=== PATIENT | female | born 1950 | race Caucasian/White ===

== ENCOUNTER 2020-07-28 15:01 | Emergency (ER) | payer MEDICARE, SELFPAY ==
[2020-07-28 15:54] VITALS: BP 117/66; PULSE 59; RESP 18; TEMP 36.6; O2SAT 97; BMI 24.0
[2020-07-28 16:41] VITALS: BP 127/72; PULSE 55; RESP 14; O2SAT 97
[2020-07-28] MEDS: methylPREDNISolone (DEPO) 40 mg/mL INJ 1 mL IM (16:44)
--- NOTE | 2020-07-28 16:46 | ED_ITS ---
HPI - Extremity Problem General: Chief complaint: Extremity Problem,Nontraumatic Stated complaint: left hip pain Time Seen by Provider: 07/28/20 16:27 History of Present Illness: HPI Narrative: Patient woke up with sciatica leg pain going down left hip down to told. Has history of chronic back problems. Has taken ibuprofen without any relief. Hurts to ambulate hurts to get up and out of chair. MD Complaint: extremity pain Onset (ago): day(s) Pain Consistency: intermittent Location: left and lower extremity Severity scale (1-10): 7 Quality: stabbing and aching Radiation: distal Relieving factors: immobilization Exacerbating factors: range of motion Associated symptoms: Reports no associated symptoms; Deny chest pain, fever(s) or rash Review of Systems Const: Denies: fever(s), chills or body aches Eyes: Denies: change in vision or blurry vision ENMT: Denies: throat pain or nasal congestion Card: Denies: chest pain or dyspnea on exertion Resp: Denies: dyspnea, productive cough or non-productive cough GI: Denies: abdominal pain, nausea or vomiting Musc: Reports: back pain and extremity pain; Denies: extremity swelling, joint pain, joint swelling, joint redness, joint warmth, joint stiffness, limited range of motion, muscle cramps, muscle weakness or deformity Skin/Breast: Denies: rash Neuro: Denies: headache(s) Psych: Denies: anxiety or depression Wilbert/Lymph: Denies: easy bruising PFSH ED PFSH: Medical History (Updated 07/28/20 @ 16:32 by MANOJ Valles) History of myocardial infarction (~2014) Surgical History H/O heart artery stent (2014) 5 placed Family History Other Cancer Diabetes Hypertension Social History Smoking and tobacco status: current every day smoker Alcohol intake: never Lives independently: Yes Marital status: Physical Exam Const: COMMON NORMALS: no acute distress, average body habitus and patient oriented x3 HENMT: COMMON NORMALS: normocephalic HEAD & SCALP: normal to inspection and normocephalic FACE & SINUS: normal facial exam Eye: COMMON NORMALS: conjunctivae normal GENERAL EYE: appearance normal, both eyes and all related structures CONJUNCTIVA: Yes conjunctivae normal Neck/C-Spine: COMMON NORMALS: no JVD Chest: COMMONS NORMALS: normal inspection of the chest Resp: COMMON NORMALS: normal respiratory effort and clear to auscultation bilaterally AUSCULTATION: clear to auscultation bilaterally Cardio: COMMON NORMALS: no JVD, regular rate and regular rhythm RATE: regular rate RHYTHM: regular rhythm GI: COMMON NORMALS: Normal to inspection, nondistended, normoactive bowel sounds present Back/Pelvis: LUMBAR SPINE/LOWER BACK: No lumbar spinal tenderness, Yes paraspinal muscle tenderness, No paraspinal muscle spasm and Yes straight leg raise positive left Straight leg raise positive details left: at 40 degrees Extremity: COMMON NORMALS: full ROM OTHER: Pain tracking along sciatica from hip down to toe hurts across calf knee and thigh. Has pain in the buttock top sciatica Neuro: COMMON NORMALS: patient oriented x3 Course Vital Signs: Vital signs: Vital Signs Temperature 97.9 F 07/28/20 15:54 Pulse Rate 55 L 07/28/20 16:41 Respiratory Rate 14 07/28/20 16:41 Blood Pressure 127/72 07/28/20 16:41 Pulse Oximetry 97 07/28/20 16:41 Discharge Plan Discharge Patient Disposition: Home Clinical Impression: Sciatic leg pain Condition: Stable Prescriptions: New Celebrex 100 mg capsule 100 mg PO BID Qty: 20 RF: 0 No Action aspirin 81 mg tablet,delayed release (DR/EC) 81 mg PO DAILY RF: 0 metoprolol tartrate 50 mg tablet 50 mg PO BID Qty: 60 RF: 3 nitroglycerin [Nitrostat] 0.4 mg tablet, sublingual 0.4 mg SUBLINGUAL Q5M PRN (Reason: chest pain) Qty: 30 RF: 1 atorvastatin 40 mg tablet 40 mg PO DAILY Qty: 90 RF: 3 ibuprofen [Advil] 200 mg tablet 200 mg PO Q6H PRN (Reason: pain) Qty: 90 RF: 3 Discharge Orders: Discharge ED (Routine); Ordered 07/28/20 Ordered By: Luis Armando Alcantara Referrals: Tamiko Marquez MD [Primary Care Provider] - Discharge Diet: Usual diet Discharge Activity: Increase activity as tolerated Patient Instructions: Sciatica (ED) Activity Restrictions/Additional Instructions: Follow-up with medical provider as directed. Take medications as prescribed. Return to the ER or your medical provider if condition worsens. Please read and understand discharge instructions. If any questions ask please. Coding Level of Care Code ED Home Health Assistant for Winston Rios
== END 2020-07-28 16:52 | disposition home or self-care (01) ==
PROVIDERS: Emergency Provider Nurse Practitioner Family; PCP Family Medicine
DX: M54.30 Sciatica, unspecified side (principal); Z79.82 Long term (current) use of aspirin; I25.2 Old myocardial infarction; F17.210 Nicotine dependence, cigarettes, uncomplicated
CPT/HCPCS: 12345; 96372; 96375; 99281; 99283; J1030

== ENCOUNTER 2020-08-06 06:00 | Outpatient (RCR) | payer MEDICARE, SELFPAY | END 2020-08-31 23:59 | disposition home or self-care (01) | LOC: TPT 06:00 | PROVIDERS: PCP Family Medicine; Referring Provider Family Medicine; Visit Provider Family Medicine | DX: M54.30 Sciatica, unspecified side (principal) | CPT/HCPCS: 97161 ==

== ENCOUNTER 2020-08-08 17:03 | Emergency (ER) | payer MEDICARE, SELFPAY ==
[2020-08-08 17:08] VITALS: BP 122/66; PULSE 60; RESP 18; TEMP 36.7; O2SAT 97; BMI 22.3
[2020-08-08 17:12] VITALS: BP 130/41; PULSE 53; RESP 17; O2SAT 98
--- NOTE | 2020-08-08 17:25 | USCV_ITS ---
Deidre Albert Age: 70 Gender: F : 1950 Exam Date: 08/08/2020 17:43 Ordering Phys: Jocelyn Moreno MD [facility] [place] Technologist: Lucía Aldridge Exam Location: [facility] [place]_ Indication: PAIN HISTORY: Lower extremity pain. PROCEDURES: Venous duplex imaging was performed in only the left lower extremity. The following venous structures were evaluated: common femoral vein, profunda vein, proximal portion of the greater saphenous vein, superficial femoral vein, and the popliteal vein. In addition, the posterior tibial and peroneal trunk were evaluated. Serial compression, augmentation maneuvers, and spectral Doppler flow evaluation were performed. FINDINGS: Normal 2-D Doppler and augmentation and compressibility throughout the lower extremity venous structures. Additional imaging through the proximal calf veins also reveals no thrombus. Limited evaluation of the greater saphenous vein is patent with no thrombus.. CONCLUSIONS No evidence of DVT in the above-mentioned identifiable veins. Dr Chicho Duque MD [facility] (Electronically Signed) Final Date: 08 August 2020 19:41 S
[2020-08-08 18:10] VITALS: BP 130/41; PULSE 54; RESP 20; O2SAT 98
[2020-08-08 18:14] VITALS: PULSE 52
--- NOTE | 2020-08-08 18:25 | W.ED.EXTPRO ---
HPI - Extremity Problem General: Chief complaint: Extremity Problem,Nontraumatic Stated complaint: suspects blood clot in left leg Time Seen by Provider: 08/08/20 17:20 Source: patient Mode of arrival: ambulatory Limitations: no limitations History of Present Illness: HPI Narrative: 70-year-old female patient with left leg pain of about 2 weeks duration. She has been seen in the emergency department and diagnosed with sciatica. Pain continues and while she was at physical therapy did told her her left lower extremity was warmer than the right. Her primary care provider then sent her here for evaluation for possible DVT. The patient denies any long distance travels, has no prior history of venous thromboembolism. Denies unilateral leg swelling. Pain is worse on walking and usually worse later in the day. MD Complaint: extremity pain Onset (ago): week(s) (1) Pain Consistency: intermittent (whenever she steps on the foot) Location: left and lower extremity Quality: stabbing Radiation: none Relieving factors: nothing Exacerbating factors: weight bearing Associated symptoms: Deny fever(s) or rash Review of Systems General: Reports: 10 or more systems reviewed and unremarkable except in HPI and below Const: Denies: fever(s), chills or body aches Eyes: Denies: change in vision or blurry vision ENMT: Denies: throat pain, enlarged tonsils, odynophagia, hoarseness, mouth pain or swelling of lips/tongue Card: Denies: palpitations, irregular heart rhythm, edema or swelling of feet/ankles Resp: Denies: dyspnea, productive cough or non-productive cough GI: Denies: abdominal pain, nausea or vomiting : Denies: flank pain, difficulty voiding, dysuria, urinary frequency, urinary urgency or urinary hesitancy Musc: Reports: extremity pain; Denies: neck pain, back pain or extremity swelling Skin/Breast: Denies: rash, pruritus or erythema Neuro: Denies: headache(s), numbness in extremities or weakness in extremities Endo: Denies: polyuria, polydipsia or tired all the time PFS ED PFSH: Medical History (Reviewed 08/08/20 @ 23:51 by Jocelyn Moreno MD, [facility] [place] History of myocardial infarction (~2014) Surgical History (Reviewed 08/08/20 @ 23:51 by Jocelyn Moreno MD, [facility] [place] H/O heart artery stent (2015) 5 placed Family History (Reviewed 08/08/20 @ 23:51 by Jocelyn Moreno MD, [facility] [place]) Other Cancer Diabetes Hypertension Social History (Reviewed 08/08/20 @ 23:51 by Jocelyn Moreno MD, [facility] [place]) Smoking and tobacco status: current every day smoker Alcohol intake: never Lives independently: Yes Marital status: Physical Exam Const: COMMON NORMALS: no acute distress, average body habitus, patient oriented x3, no limitations, healthy appearing, alert and well nourished Neck/C-Spine: COMMON NORMALS: no meningeal signs and no JVD Resp: COMMON NORMALS: normal respiratory effort, No retractions, No use of accessory muscles, clear to auscultation bilaterally and percussion normal AUSCULTATION: clear to auscultation bilaterally PERCUSSION: percussion normal Cardio: COMMON NORMALS: no JVD, regular rate, regular rhythm, S1 normal heart sound present, S2 normal heart sound present, No gallops present (Cardio), No clicks present (Cardio), No murmurs present (Cardio), No rub (Cardio) and Peripheral pulses 2+ throughout RATE: regular rate RHYTHM: regular rhythm HEART SOUNDS: S1 normal heart sound present and S2 normal heart sound present PERIPHERAL PULSES: Peripheral pulses 2+ throughout GI: COMMON NORMALS: Normal to inspection, nondistended, normoactive bowel sounds present, Soft to palpation, non-tender, No hepatosplenomegaly present, no masses and no bruits PALPATION: Yes Soft to palpation and Yes No hepatosplenomegaly present Extremity: COMMON NORMALS: normal to inspection, full ROM, capillary refill normal, no calf tenderness and no pedal edema LEFT LOWER EXTREMITY: Yes lower leg (mild calf tenderness, otherwise unremarkable) Left lower leg: Yes neurovascular exam Neuro: COMMON NORMALS: patient oriented x3 SENSORIUM/ORIENTATION: Yes alert MENINGEAL SIGNS: Yes no meningeal signs Skin: COMMON NORMALS: no rashes or lesions noted, no wounds, turgor normal, no jaundice, no petechiae and no mottling GENERAL SKIN EXAM: no rashes or lesions noted and turgor normal Course Reevaluation(s): Reevaluation #1: Discussed her lab and imaging findings with her. Negative for acute findings. Venous Doppler negative for DVT. Electrolytes normal. Advised that she may be having some form of peripheral neuropathy and would like a trial of gabapentin. She said that she had used her 's gabapentin and it had helped. So she is open to trying gabapentin. We will give her prescription of gabapentin and have her follow-up with her primary care provider. She voiced understanding and is in agreement with the plan. Time: 19:46 Vital Signs: Vital signs: Vital Signs Temperature 98.1 F 08/08/20 17:08 Pulse Rate 50 L 08/08/20 19:55 Respiratory Rate 16 08/08/20 19:55 Blood Pressure 166/63 08/08/20 19:55 Pulse Oximetry 96 08/08/20 19:55 MDM - Extremity (Nontraumatic) MDM Narrative: Medical decision making narrative: Patient with left leg pain of about 2 weeks duration. She denies that the pain originates from her back, and evaluation in the emergency department is unremarkable. We will do a trial of gabapentin and will manage as a case of peripheral neuropathy. She is not a known diabetic. Medical Records: Attestation: I reviewed the patient's medical records. Lab Data: Attestation: I reviewed the patient's lab results. Labs: Lab Results 08/08/20 08/08/20 Range/Units 18:27 18:27 WBC 9.6 (4.0-10.0) 10^3/ uL RBC 4.51 (4.1-5.3) 10^6/u L Hgb 14.4 (11.5-15.3) g/dL Hct 43.0 (37.0-47.0) % MCV 95.3 (81-99) fL MCH 31.9 (28.0-34.0) pg MCHC 33.5 (30.0-36.0) g/dL RDW 13.2 (12.1-15.1) % Plt Count 268 (130-400) 10^3/c mm MPV 10.2 (7.4-10.4) fL Neut % (Auto) 59.3 % Lymph % (Auto) 32.5 % [place] % (Auto) 5.7 % Eos % (Auto) 1.4 % Baso % (Auto) 0.6 % Neut # (Auto) 5.69 (1.8-7.7) 10^3/u L Lymph # (Auto) 3.1 (0.8-4.8) 10^3/u L [place] # (Auto) 0.6 (0.2-0.9) 10^3/u L Eos # (Auto) 0.1 (0.0-0.8) 10^3/u L Baso # (Auto) 0.1 (0.0-0.1) 10^3/u L Nucleated RBC % (a uto) 0 % Nucleated RBCs # 0.0 /100WBC Sodium 140 (136-145) mmol/L Potassium 3.6 (3.5-5.1) mmol/L Chloride 107 (98-107) mmol/L Carbon Dioxide 22 (22-29) mmol/L Anion Gap 14.6 (5-19) BUN 14 (8-23) mg/dL Creatinine 0.5 (0.5-0.9) mg/dL GFR Calculation 122.7 (90-130) mL/min Glucose 98 (65-115) mg/dL Calculated Osmolal ity 290 (285-295) mOsm/k g Calcium 9.3 (8.5-10.5) mg/dL Magnesium 2.0 (1.7-2.3) mg/dL Total Bilirubin 0.3 (0.15-1.2) mg/dL AST 16 (0-32) U/L ALT 18 (0-33) U/L Alkaline Phosphata se 139 H (35-105) IU/L Total Protein 6.7 (6.6-8.7) g/dL Albumin 4.0 (3.5-5.2) g/dL Globulin 2.7 (1.3-4.6) g/dL Imaging Data^: US Vascular: Attestation: I personally reviewed and interpreted this imaging study as follows: Radiologist's impression: [address] [address] Ultrasound Report Signed Patient: Deidre Albert #: [id number] : 2Acct#:[id number] Age/Sex: 70 / FADM Date: 08/08/20 Loc: ERRoom/Bed: Attending Dr: Ordering Provider/Ordering MD: Jocelyn Moreno MD, [facility] Date of Service: 08/08/20 Procedure(s): [place] [address] Accession Number(s): [id number] Report Number: [id number] Deidre Albert Age: 70 Gender: F : 1950 Exam Date: 08/08/2020 17:43 Ordering Phys: Jocelyn Moreno MD [facility] [place] Technologist: Lucía Aldridge Exam Location: [facility] [place] Indication: PAIN HISTORY: Lower extremity pain. PROCEDURES: Venous duplex imaging was performed in only the left lower extremity. The following venous structures were evaluated: common femoral vein, profunda vein, proximal portion of the greater saphenous vein, superficial femoral vein, and the popliteal vein. In addition, the posterior tibial and peroneal trunk were evaluated. Serial compression, augmentation maneuvers, and spectral Doppler flow evaluation were performed. FINDINGS: Normal 2-D Doppler and augmentation and compressibility throughout the lower extremity venous structures. Additional imaging through the proximal calf veins also reveals no thrombus. Limited evaluation of the greater saphenous vein is patent with no thrombus.. CONCLUSIONS No evidence of DVT in the above-mentioned identifiable veins. Dr Chicho Duque MD [facility] (Electronically Signed) Final Date: 08 August 2020 19:41 S Discharge Plan Discharge Patient Disposition: Home Clinical Impression: Peripheral neuropathy Qualifiers: Peripheral neuropathy type: polyneuropathy, unspecified Qualified Code(s): G62.9 - Polyneuropathy, unspecified Condition: Stable Prescriptions: New gabapentin 100 mg capsule 100 mg PO TID Qty: 90 RF: 0 Continued aspirin 81 mg tablet,delayed release (DR/EC) 81 mg PO DAILY RF: 0 metoprolol tartrate 50 mg tablet 50 mg PO BID Qty: 60 RF: 3 nitroglycerin [Nitrostat] 0.4 mg tablet, sublingual 0.4 mg SUBLINGUAL Q5M PRN (Reason: chest pain) Qty: 30 RF: 1 atorvastatin 40 mg tablet 40 mg PO DAILY Qty: 90 RF: 3 ibuprofen [Advil] 200 mg tablet 200 mg PO Q6H PRN (Reason: pain) Qty: 90 RF: 3 methylprednisolone [Medrol (Ramon)] 4 mg tablets,dose pack See Rx Instructions PO PER PKG DIR Qty: 21 RF: 0 Discontinued celecoxib [Celebrex] 200 mg capsule 200 mg PO BID Qty: 30 RF: 0 Discharge Orders: Discharge ED (Routine); Ordered 08/08/20 Ordered By: Jocelyn Moreno Referrals: Tamiko Marquez MD [Primary Care Provider] - 1-3 days Discharge Diet: Usual diet Discharge Activity: Increase activity as tolerated Patient Instructions: Peripheral Neuropathy (ED) Activity Restrictions/Additional Instructions: Return for any new or worsening symptoms. Follow-up with your primary care provider within 3 days. Take the medications as prescribed. Coding Level of Care Code ED Hide Handler for Winston Rios
[2020-08-08 18:40] LABS: Basophils # 0.1 10^3/uL (0.0-0.1); Basophils % 0.6 %; Eosinophils # 0.1 10^3/uL (0.0-0.8); Eosinophils % 1.4 %; Hemoglobin 14.4 g/dL (11.5-15.3); Lymphocytes # 3.1 10^3/uL (0.8-4.8); Lymphocytes % 32.5 %; Mean Corpuscular HGB Conc 33.5 g/dL (30.0-36.0); Mean Corpuscular Hemoglobin 31.9 pg (28.0-34.0); Mean Corpuscular Volume 95.3 fL (81-99); Mean Platelet Volume 10.2 fL (7.4-10.4); Monocytes # 0.6 10^3/uL (0.2-0.9); Monocytes % 5.7 %; Neutrophils # 5.69 10^3/uL (1.8-7.7); Neutrophils % 59.3 %; Nucleated Red Blood Cells % 0 %; Platelet Count 268 10^3/cmm (130-400); Red Blood Count 4.51 10^6/uL (4.1-5.3); Red Cell Distribution Width 13.2 % (12.1-15.1); White Blood Count 9.6 10^3/uL (4.0-10.0)
[2020-08-08 19:01] LABS: Alanine Aminotransferase 18 U/L (0-33); Alkaline Phosphatase 139 IU/L (35-105); Anion Gap 14.6 (5-19); Aspartate Amino Transferase 16 U/L (0-32); Blood Urea Nitrogen 14 mg/dL (8-23); Calcium 9.3 mg/dL (8.5-10.5); Carbon Dioxide 22 mmol/L (22-29); Chloride 107 mmol/L (98-107); Globulin 2.7 g/dL (1.3-4.6); Glomerular Filtration Rate 122.7 mL/min (90-130); Glucose 98 mg/dL (65-115); Osmolality Calculated 290 mOsm/kg (285-295); Potassium 3.6 mmol/L (3.5-5.1); Sodium 140 mmol/L (136-145); Total Bilirubin 0.3 mg/dL (0.15-1.2); Total Protein 6.7 g/dL (6.6-8.7)
[2020-08-08 19:55] VITALS: BP 166/63; PULSE 50; RESP 16; O2SAT 96
== END 2020-08-08 19:56 | disposition home or self-care (01) ==
PROVIDERS: Emergency Provider Family Medicine; PCP Family Medicine
DX: G62.9 Polyneuropathy, unspecified (principal); I25.2 Old myocardial infarction; F17.210 Nicotine dependence, cigarettes, uncomplicated
CPT/HCPCS: 12345; 80053; 83735; 85025; 93971; 99281; 99283

== ENCOUNTER → 2020-09-04 09:07 | Outpatient (BNVA) | payer MEDICARE, SELFPAY | PROVIDERS: PCP Family Medicine; Visit Provider Family Medicine | DX: M25.572 Pain in left ankle and joints of left foot (principal); M79.672 Pain in left foot | CPT/HCPCS: 73600; 73610; 73620; 73630 ==

== ENCOUNTER 2021-05-18 21:36 | Observation (INO) | payer MEDICARE, SELFPAY ==
[2021-05-18 21:45] VITALS: BP 104/60; PULSE 72; RESP 18; TEMP 36.2; O2SAT 95; BMI 24.7
--- NOTE | 2021-05-18 21:48 | XRR_ITS ---
PROCEDURE INFORMATION: Exam: XR Chest Exam date and time: 05/18/2021 9:48 PM Age: 71 years old Clinical indication: Sternal or substernal pain; Additional info: Chest pain TECHNIQUE: Imaging protocol: XR of the chest. Views: 1 view. COMPARISON: No relevant prior studies available. FINDINGS: Lungs: Flattening of the diaphragms could indicate COPD. The lungs are clear. No consolidation. Pleural spaces: Unremarkable. No pleural effusion. No pneumothorax. Heart/Mediastinum: Unremarkable. No cardiomegaly. Bones/joints: Unremarkable. Intraperitoneal space: Clips and sutures in the upper abdomen. XR/XR chest 1V portable [id number] IMPRESSION: No acute findings. Radiation Dose CTDIVOL = (mGy): DLP = (mGy-cm)
--- NOTE | 2021-05-18 21:48 | ECG_ITS ---
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 Measurements Intervals [place] Rate: 65 P: 99 MO: 133 QRS: -15 QRSD: 92 T: 44 QT: 299 QTc: 312 Interpretive Statements SINUS RHYTHM LOW QRS VOLTAGE IN PRECORDIAL LEADS [QRS DEFLECTION < 1.0 mV IN CHEST LEADS] POSSIBLE ANTERIOR MYOCARDIAL INFARCTION , OF INDETERMINATE AGE [30 ms Q WAVE IN V3/V4, OR R < 0.2 mV IN V4] INFERIOR MYOCARDIAL INFARCTION , OF INDETERMINATE AGE [40+ ms Q WAVE AND/OR ST/T ABNORMALITY IN II/aVF] No previous ECG available for comparison Electronically Signed On 05-19-2021 12:08:17 KILN FEEDER by Isabela Pineda M.D. [id number]
--- NOTE | 2021-05-18 22:12 | W.ED.GENADLT ---
HPI - General Adult General: Chief complaint: Chest Pain Stated complaint: CP Time Seen by Provider: 05/18/21 21:46 History of Present Illness: HPI narrative: CC: Chest Pain HPI: This is a [71] yo patient hx of HTN, CAD s/ p stent x 5, HTN, HLD presenting to the ED w/ acute onset intermittent substernal chest pressure x 2 hours with radiation to the back. Pain is a very typical prior presentation of cardiac chest pain. Has shortness of breath worse with exertion. Pain is not tearing in nature and does not radiate to the back. Endorse nausea but has no associated with vomiting or decreased PO intake. Denies any recent sympathomimetic drug use. Patient denies any cough. Denies palpitations, syncope symptoms. Pain not positional. Norecent immobility, surgery, unilateral leg swelling, or prior PE. Patient denies any orthopnea, paroxysmal nocturnal dyspnea, weight gain, or increased leg swellings. Patient receive ASA 325mg and nitro SL x 2 and nitro ointment en route. Onset: [2] hrs ago Duration: ongoing for the last 2 hrs Location: home Severity: moderate Review of Systems Narrative: Constitutional: No fever, no chills. HEENT: No vision changes, no sore throat. CV: +chest pain, no palpitations. PULM: No cough, +dyspnea. GI: No abdominal pain, no N/V/D. : No dysuria, no frequency, no hematuria. MSKEL: No arthralgias, no edema. SKIN: No new rashes, no lesions. NEURO: No headache, no focal weakness. HEME: No easy bleeding or bruising. PSYCH: No change in mood or affect. [facility] ED PFSH: Medical History (Updated 05/18/21 @ 22:11 by Martha Bennett MD) History of myocardial infarction (~2014) Surgical History H/O heart artery stent (2015) 5 placed Family History Other Cancer Diabetes Hypertension Social History Smoking and tobacco status: current every day smoker Alcohol intake: never Lives independently: Yes Marital status: Physical Exam Narrative: EXAM NARRATIVE: Head: Atraumatic, normocephalic Eyes: PERRL, EOMI, conjunctiva without injection ENT: Throat without erythema, lesions or exudate, MMM NECK: Supple, trachea midline, no JVD LUNGS: LCTA CV: RRR, S1,S2, no murmurs, rubs, gallops. 2+ peripheral pulses in UEs ABDOMEN: Soft, nontender, nondistended, BS x4, no rigidity, no guarding, no rebound EXTREMITY: Normal ROM, no pitting edema, no calf tenderness to palpation SKIN: No rash or erythema NEURO: Awake and alert. No focal motor deficits. PSYCH: Normal mood and affect. Course Vital Signs: Vital signs: Vital Signs Temperature 97.1 F L 05/18/21 21:45 Pulse Rate 72 05/18/21 21:45 Respiratory Rate 18 05/18/21 21:45 Blood Pressure 104/60 05/18/21 21:45 Pulse Oximetry 95 05/18/21 21:45 MDM - General Adult MDM Narrative: Medical decision making narrative: [71]yo patient w/ hx of CAD s/p stent x 2 presenting to the ED With acute substernal chest pain X 2 hrs with hx of similar prior pain. Currently mild chest pain. Given History And Exam today I have moderate to high suspicion for ACS/UA/NSTEMI. Today, I have NO suspicion for pneumothorax, pneumonia, pulmonary embolus, tamponade, aortic dissection or other emergent problem as a cause for this presentation. ECG did not show any signs of acute STEMI. Workup: ECG, CXR, CBC, BMP, Troponin Rescue gave ASA 325, nitro SL x 2, and nitro paste - will not give here Findings: ECG: T wave inversions in V1-V6, no STEs Troponin: Negative x 1 Other Labs unremarkable for emergent problems. CXR: Without PTX, PNA, or widened mediastinum [10:35pm] On reassessment, the patient is currently chest pain free. S/p aspirin 325mg. Will defer antiplatelet and anticoagulation to the inpatient team. Pending repeat troponin. Disposition: Inpatient admission. Lab Data: Labs: Lab Results 05/18/21 05/18/21 21:51 23:59 Troponin T Baselin e 9 ng/L ng/L (0-10) Troponin T 120 Min ashvin 8.69 ng/L ng/L (0-10) Delta Troponin T -0.31 ABS# L ABS# (0-10) Imaging Data^: Other Imaging: Radiologist's impression: [address] [address]VMto ReportSigned Patient: Deidre Albert #: [id number]: 1950cct#:[id number]/Sex: 71 / FADM Date: 05/18/21Loc: ERRoom/Bed:Attending Dr: Ordering Provider/Ordering MD: Martha Bennett MD Date of Service: 05/18/21 Procedure(s): XR chest 1V portable [id number] Accession Number(s): [id number] Report Number: [id number] PROCEDURE INFORMATION: Exam: XR Chest Exam date and time: 05/18/2021 9:48 PM Age: 71 years old Clinical indication: Sternal or substernal pain; Additional info: Chest pain TECHNIQUE: Imaging protocol: XR of the chest. Views: 1 view. COMPARISON: No relevant prior studies available. FINDINGS: Lungs: Flattening of the diaphragms could indicate COPD. The lungs are clear. No consolidation. Pleural spaces: Unremarkable. No pleural effusion. No pneumothorax. Heart/Mediastinum: Unremarkable. No cardiomegaly. Bones/joints: Unremarkable. Intraperitoneal space: Clips and sutures in the upper abdomen. XR/XR chest 1V portable [id number] IMPRESSION: No acute findings. Radiation Dose CTDIVOL = (mGy): DLP = (mGy-cm) Dictated By:Carmella Rachel By:Carmella Rachel Date/Time:05/18/212238DD/ 47 Discharge Plan Discharge Patient Disposition: Admitted As Inpatient Clinical Impression: Chest pain, Angina pectoris, unstable Condition: Stable Coding Level of Care Code ED Enterprise Infrastructure Architect for Winston Rios
[2021-05-18 22:23] LABS: Troponin(5th) Baseline 9 ng/L (0-10)
--- NOTE | 2021-05-18 23:48 | ECG_ITS ---
[facility] Test Date: 2021-05-19 Pat Name: Deidre Albert Department: Room: Gender: Female First D[employer]: : 1950 Requested By: Martha Bennett Order Number: [id number] Reading MD: Chicho Duque M.D. Measurements Intervals [place] Rate: 60 P: 68 IA: 121 QRS: -18 QRSD: 74 T: 87 QT: 404 QTc: 406 Interpretive Statements SINUS RHYTHM LOW QRS VOLTAGE IN PRECORDIAL LEADS [QRS DEFLECTION < 1.0 mV IN CHEST LEADS] POSSIBLE ANTERIOR MYOCARDIAL INFARCTION , OF INDETERMINATE AGE [30 ms Q WAVE IN V3/V4, OR R < 0.2 mV IN V4] Diffuse nonspecific T wave changes INFERIOR MYOCARDIAL INFARCTION , PROBABLY OLD [40+ ms Q WAVE AND/OR ST/T ABNORMALITY IN II/aVF] Compared to ECG 05/18/2021 21:53:08 No significant changes Electronically Signed On 05-19-2021 22:02:18 CLINICAL PATHOLOGIST by Chicho Duque M.D. [id number]
[2021-05-19] VITALS (7 sets, daily range): BP systolic 85–135; BP diastolic 41–70; PULSE 47–72; RESP 17–18; TEMP 36.4–36.9; O2SAT 93–97; BMI 24.7
[2021-05-19 00:21] LABS: Troponin 5 2HR 8.69 ng/L (0-10)
[2021-05-19 00:29] LABS: Troponin 5 2HR Delta -0.31 ABS# (0-10)
--- NOTE | 2021-05-19 01:13 | ECG_ITS ---
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 Interpretive Statements NAME OF STUDY: LEXISCAN SESTAMIBI STRESS TEST INDICATION: [Chest Pain] Procedure: At the baseline, the blood pressure was 85/59 mmHg with a heart rate of 57 bpm. The electrocardiogram showed normal sinus rhythm, normal axis with normal ST and T's. The Lexiscan was infused over a period of 20 seconds. A total of 0.4 mg of Lexiscan was infused. The stress phase was continued for a total of 5 minutes. Heart rate was at the end of stress phase was 63 bpm and a blood pressure of 81/54 mmHg. The EKG at the peak infusion revealed since normal sinus rhythm with no significant ST-T wave changes. Sestamibi was injected 20 seconds after the Lexiscan infusion. Blood pressure at the end of recovery phase was 84/47 mmHg with a heart rate of 51 bpm. Conclusion: 1. Normal EKG response to Lexiscan infusion 2. No Lexiscan induced chest pain or cardiac arrhythmia. 3. Normal heart rate response. Blood pressure was low at baseline however improved in recovery phase but was fluctuating. 4. Sestamibi/sestamibi perfusion scan pending; see separate report. Electronically Signed On 06-27-2021 11:39:07 TECHNICAL SUPPORT INTERNSHIP by Simone Bae M.D. [id number]
--- NOTE | 2021-05-19 01:15 | NMCV_ITS ---
NM brittny perf SPECT r/s* [id number] Deidre Albert Age: 71 Gender: F : 1950 Exam Date: 05/19/2021 10:31 Ordering Phys: Christy Fernandez MD Technologist: BANDAR Devine Exam Location: [facility] Indications: CHEST PAIN STRESS TEST Please see separate stress test report in [facility] for full findings IMAGE PROTOCOL Rest/Stress 1 Lexiscan Day Radiopharmaceutical Dose (mCi) Administration Site Administered by Rest: Tc-99m 11.0 IV BANDAR Devine Sestamibi Stress:Tc-99m 32.6 IV BANDAR Yao Sestamibi Rest: 19-May-2021 60 Discovery 630 Stress: 19-May-2021 30 Discovery 630 0.4mg Lexiscan. Images obtained in supine and prone position. SPECT RESULTS Technical Quality: Excellent Raw Data Analysis: Normal Image Corrections: No attenuation or motion correction applied Summed Stress Score: 0 Summed Rest Score: 1 Summed Difference Score: 0 PERFUSION FINDINGS Patchy areas of slightly decreased tracer uptake in the apical anterior and akbar lateral regions. No significant reversibility was noted in these areas. FUNCTIONAL RESULTS (calculated via Gated SPECT) Stress Image LV EF (%): 86 Stress EDV (mL):49 TID: 0.88 Stress ESV (mL):7 FUNCTIONAL FINDINGS: Segmental wall motion analysis revealing no significant wall motion abnormality IMPRESSIONS 1. Myocardial perfusion imaging revealing patchy areas of persistent decreased tracer uptake in the apical and anterolateral regions, most likely represent attenuation artifacts. 2. Normal LV ejection fraction of 86%. 3. LV wall motion analysis revealing no significant wall motion abnormalities 4. Normal LV volume No significant coronary ischemia, based on the above findings Dr Chicho Duque MD [facility] (Electronically Signed) Final Date: 19 May 2021 14:05 S
--- NOTE | 2021-05-19 05:00 | PM.HP ---
Providers/Chief Complaint Admitting Physician: Christy Fernandez MD Primary Care Provider: Tamiko Marquez MD Chief Complaint: CP History of Present Illness Deidre Albert is a 71 year old female with past medical history of coronary artery disease status post multiple stents in the past, previously in [place], moved to [place] in December 2019, established care with Dr. Bae in apr 2020. Presents to the ER today complaining of chest pain that started at around 7 PM at rest while patient was laying in bed. Has not noticed any specific exacerbating or relieving symptoms. No radiation of pain anywhere. Denies any cough chest pain URI symptoms or fever recently. Pain was relieved after receiving sublingual nitroglycerin in the ER. She has had episodic chest pain on and off over the past year, previously thought to be related to anxiety. Her blood pressure is usually well controlled. Per last office note, plan for ischemic work-up if episodes recur or became more frequent. No recent echocardiogram available in the system. She has not noticed any worsening shortness of breath orthopnea. Saturating 93% on room air. Review of Systems General: Reports: 10 or more systems reviewed and unremarkable except in HPI and below Const: Denies: fever(s), chills or body aches Eyes: Denies: change in vision, blurry vision or photophobia ENMT: Reports: hoarseness; Denies: throat pain, enlarged tonsils, odynophagia or nasal congestion Card: Denies: chest pain, palpitations, irregular heart rhythm, edema, swelling of feet/ankles, lightheadedness, pre-syncope, dyspnea on exertion or orthopnea Resp: Denies: dyspnea, productive cough, non-productive cough, wheezing, stridor, pain on inspiration, change in phlegm color, hemoptysis or chest congestion GI: Denies: abdominal pain, nausea, vomiting, hematemesis, coffee ground emesis, dysphagia, heartburn, diarrhea, constipation, GI cramping, change in stool character, hematochezia or melena : Denies: flank pain, difficulty voiding, dysuria, urinary frequency, urinary urgency, urinary hesitancy or hematuria Musc: Denies: neck pain, back pain, extremity pain, joint swelling, joint warmth or deformity Neuro: Denies: headache(s), numbness in extremities, weakness in extremities, sensory changes, difficulty walking, frequent falls, dizziness, vertigo, behavioral changes, Slurred speech present or seizure-like activity Psych: Denies: anxiety, depression, suicidal ideation or homicidal ideation Endo: Denies: polyuria, polydipsia, tired all the time, cold intolerance or hot flashes Wilbert/Lymph: Denies: easy bruising or easy bleeding Medications/Allergies Home Medications Medication Instructions Recorded Confirmed Last Taken Type aspirin 81 mg tablet,delayed 81 mg PO DAILY 04/24/20 11/14/20 Unknown History release nitroglycerin 0.4 mg sublingual 0.4 mg SUBLINGUAL Q5M PRN #30 tab 04/24/20 11/14/20 Unknown Rx tablet atorvastatin 40 mg tablet 40 mg PO DAILY #90 tab 05/13/20 11/14/20 Unknown Rx gabapentin 100 mg PO TID #90 cap 08/08/20 09/04/20 Unknown Rx metoprolol tartrate 50 mg tablet 50 mg PO BID #180 tab 12/19/20 Unknown Rx Allergies Allergy/AdvReac Type Severity Reaction Status Date / Time prednisone Allergy ADR-Chest Verified 11/14/20 11:31 Pain PFSH Acute PFSH: Medical History History of myocardial infarction (~2014) Surgical History H/O heart artery stent (2014) 5 placed Family History Other Cancer Diabetes Hypertension Social History Smoking and tobacco status: current every day smoker Alcohol intake: never Lives independently: Yes Marital status: Vitals/I&O/Wt Last Vital Signs Temp 97.1 F L 05/18/21 21:45 Pulse 69 05/19/21 03:12 Resp 18 05/19/21 03:12 BP 85/54 05/19/21 06:38 Pulse Ox 93 05/19/21 06:38 05/18/21 05/18/21 05/19/21 14:59 22:59 06:59 Intake Total 480 / 480 Balance 480 / 480 Weight last 48 hrs Weight 63.503 kg Weight 63.503 kg Physical Exam Narrative: EXAM NARRATIVE: General: No acute distress, AO x3, lying comfortably in bed HEENT: PERRLA, pupils bilaterally equal and reactive, pallors not present Chest: Normal vesicular breath sounds, no added sounds, equal good air entry bilaterally CVS: S1-S2 regular, no murmurs, no tachycardia, no gallops, no rubs Abdomen: Soft, nontender, no organomegaly, bowel sounds present Neuro: No focal deficits, no facial deformity, AO x3, power 5/5 in all limbs Data : 05/19/21 05:29 05/19/21 05:29 A&P Assessment and plan (1) Chest pain: EKG today with sinus rhythm with occasional VPCs. No acute ST-T wave changes grossly. Baseline and 2-hour troponin within normal range at 9 and 8.6, 2-hour delta negative. Pending 6-hour troponin. Pending all routine labs at the time of assessment. Lipid panel and HbA1c added. Overall symptoms concerning for anginal type chest pain in a past history of CAD and stenting. Will obtain Lexiscan stress test this morning. Continue aspirin, Lipitor, metoprolol 50 twice daily in the interim. Status: Acute (2) Angina pectoris, unstable: Status: Acute Attestations Medical Necessity Statement*: Observation admission, anticipate less than 2 midnight stay Coding Level of Care Code Acute Leadership Program Internship for Winston Rios Diagnoses Chest pain R07.9 Angina pectoris, unstable I20.0
[2021-05-19 05:42] LABS: Basophils # 0.1 10^3/uL (0.0-0.1); Basophils % 0.6 %; Eosinophils # 0.1 10^3/uL (0.0-0.8); Eosinophils % 1.4 %; Hematocrit 35.3 % (37.0-47.0); Hemoglobin 12.3 g/dL (11.5-15.3); Lymphocytes # 3.2 10^3/uL (0.8-4.8); Lymphocytes % 40.6 %; Mean Corpuscular HGB Conc 34.8 g/dL (30.0-36.0); Mean Corpuscular Hemoglobin 32.3 pg (28.0-34.0); Mean Corpuscular Volume 92.7 fl (81-99); Mean Platelet Volume 10.3 fL (7.4-10.4); Monocytes # 0.5 10^3/uL (0.2-0.9); Monocytes % 6.9 %; Neutrophils # 3.92 10^3/uL (1.8-7.7); Nucleated Red Blood Cells % 0 %; Platelet Count 235 10^3/cmm (130-400); Red Blood Count 3.81 10^6/uL (4.1-5.3); Red Cell Distribution Width 13.5 % (12.1-15.1); White Blood Count 7.9 10^3/uL (4.0-10.0)
[2021-05-19] MEDS: acetaminophen 325 mg Tablet 650 MG PO (05:51)
[2021-05-19 06:00] LABS: Troponin 5 6HR 8.07 ng/L (0-10)
[2021-05-19 06:02] LABS: Alanine Aminotransferase 14 U/L (0-33); Albumin Level 3.7 g/dL (3.5-5.2); Alkaline Phosphatase 115 IU/L (35-105); Anion Gap 17.5 (5-19); Aspartate Amino Transferase 13 U/L (0-32); Blood Urea Nitrogen 9 mg/dL (8-23); Calcium 8.6 mg/dL (8.5-10.5); Carbon Dioxide 21 mmol/L (22-29); Chloride 104 mmol/L (98-107); Chol HDL Ratio 2.79 mg/dL (0.0-4.40); Cholesterol 109 mg/dL (0-200); Globulin 2.5 g/dL (1.3-4.6); Glomerular Filtration Rate 71.1 mL/min (90-130); Glucose 101 mg/dL (65-115); HDL Cholesterol 39 mg/dL (60-100); LDL Cholesterol Calculated 51 mg/dL (50-129); LDL HDL Ratio 1.31 RATIO (0.00-3.22); Osmolality Calculated 287 mOsm/kg (285-295); Potassium 3.5 mmol/L (3.5-5.1); Sodium 139 mmol/L (136-145); Total Bilirubin 0.3 mg/dL (0.15-1.2); Total Protein 6.2 g/dL (6.6-8.7); Triglycerides 97 mg/dL (0-150)
[2021-05-19 06:24] LABS: Troponin 5 6HR Delta -0.93 ng/L (0-12)
--- NOTE | 2021-05-19 06:42 | PC.NURSE ---
Patient arrived to floor via wc, AAOx4, [place]ER[place] to left ear, no c/o pain at this time, denies being incontinent of BB. OOBTC and bathroom without difficulty or SOB. BP soft with remaining VSS. Room clutter free and call light on bed. Telemetry placed.
[2021-05-19 07:03] LABS: Estmated Average Glucose 120; Hemoglobin A1C 5.8 % (4.0-6.0)
--- NOTE | 2021-05-19 07:13 | ECG_ITS ---
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 Measurements Intervals Higgins Rate: 78 P: 64 CO: 185 QRS: 2 QRSD: 96 T: 29 QT: 394 QTc: 450 Interpretive Statements SINUS RHYTHM WITH OCCASIONAL SUPRAVENTRICULAR PREMATURE COMPLEXES Compared to ECG 05/19/2021 00:03:15 Myocardial infarct finding no longer present Electronically Signed On 05-19-2021 22:09:49 FAMILY MEDICINE PHYSICIAN ASSISTANT by Chicho Duque M.D. [id number]
[2021-05-19] MEDS: aspirin 81 mg EC Tablet PO (08:27)
[2021-05-19] MEDS: pantoprazole DR 40 mg Tablet PO (08:27)
[2021-05-19] MEDS: gabapentin 100 mg Capsule PO (08:27)
[2021-05-19] MEDS: atorvastatin 40 mg Tablet PO (08:27)
--- NOTE | 2021-05-19 09:49 | PM.PN ---
Subjective Subjective: Interval history: Deidre reports she had no chest discomfort overnight. She is to have a nuclear stress test this morning. History and physical reviewed with the patient. Medications: Reviewed: Yes Vitals/I&O/Wt Last Vital Signs Temp 97.8 F 05/19/21 07:20 Pulse 66 05/19/21 07:20 Resp 17 05/19/21 07:20 BP 97/55 05/19/21 07:20 Pulse Ox 95 05/19/21 07:20 05/18/21 05/19/21 05/19/21 22:59 06:59 14:59 Intake Total 480 / 480 0 / 0 Balance 480 / 480 0 / 0 Weight last 48 hrs Weight 63.503 kg Weight 63.503 kg Physical Exam Narrative: EXAM NARRATIVE: General exam no distress Neck is supple Cardiovascular regular rate and rhythm, no murmur Lungs clear Abdomen is soft, positive bowel sounds Extremities no cyanosis clubbing or edema Data : 05/19/21 05:29 05/19/21 05:29 A&P Assessment and plan (1) Chest pain: Troponins negative. EKG nonacute Await nuclear stress test Continue aspirin, beta-janene, statin May have a cardiac diet following nuclear stress test Status: Acute (2) Angina pectoris, unstable: See above Status: Acute Additional A&P Information Hypertension, stable Hyperlipidemia, continue statin. LDL controlled Attestations Medical Necessity Statement*: Possible discharge today, depending upon nuclear stress test results. Coding Level of Care Code Acute Core Winder Machine Operator for Winston Rios Diagnoses Chest pain R07.9 Angina pectoris, unstable I20.0
--- NOTE | 2021-05-19 11:10 | SUR.PREOP ---
Patient reports no pain or discomfort prior to the start of the procedure.
[2021-05-19] MEDS: regadenoson 0.4 Mg/5 ml Syringe IVP (11:12)
[2021-05-19] MEDS: aminophylline 25 mg/mL SDV 10 mL IVP (11:30)
--- NOTE | 2021-05-19 14:47 | P.DS_ITS ---
Discharge Providers Date of Admission: 05/19/21 03:40 Date of Discharge: May 19, 2021 Attending Provider at Admission: Christy Fernandez MD Attending Provider at Discharge: Hugo Medina MD Primary Care Provider: Tamiko Marquez MD Diagnoses at Discharge Discharge Diagnosis (1) Chest pain: Status: Acute (2) Angina pectoris, unstable: Status: Acute Reason for Visit Reason for Visit: CP Hospital Course Hospital Course Deidre is a 71-year-old white female who presented to the hospital with chest discomfort. She has a history of coronary artery disease. Troponins were negative. EKG did not demonstrate any acute changes. Her aspirin, beta-janene and statin was continued and a nuclear stress test was ordered. Nuclear stress test demonstrated no obvious reversible ischemia, preserved ejection fraction. Patient had no chest discomfort while in the hospital, and with nuclear stress test without reversible ischemia and it was thought she could be discharged home. Telemetry demonstrated sinus bradycardia while in the hospital, and some blood pressures were borderline low so her metoprolol was reduced to 25 mg twice daily. She will follow-up with her primary care provider in 3 to 5 days, cardio logy 2 weeks. She will return for any concerns. Limitations of stress test were discussed and plan was discussed in depth with patient, and daughter were given an opportunity to ask questions and voiced any concerns. Physical Exam Narrative: EXAM NARRATIVE: See exam done earlier today Discharge Data Data Completed and Pending: Completed Studies During Hospitalization Category Date Time Status Sestamibi Stress Test Request Rashi ne Exams 05/19/21 01:13 Draft XR chest 1V reta ble [id number] Stat Exams 05/18/21 21:48 Completed NM brittny perf SPECT r/s* [id number] Routin e Nuc Med 05/19/21 01:15 Completed Labs from last 24 hours 05/19/21 05/19/21 05/19/21 05:29 05:29 05:29 WBC RBC Hgb Hct MCV MCH MCHC RDW Plt Count MPV Neut % (Auto) Lymph % (Auto) [place] % (Auto) Eos % (Auto) Baso % (Auto) Neut # (Auto) Lymph # (Auto) [place] # (Auto) Eos # (Auto) Baso # (Auto) Nucleated RBC % (a uto) Nucleated RBCs # Sodium 139 Potassium 3.5 Chloride 104 Carbon Dioxide 21 L Anion Gap 17.5 BUN 9 Creatinine 0.8 GFR Calculation 71.1 L Glucose 101 Estimat Average Gl ucose 120 Hemoglobin A1c 5.8 Calculated Osmolal ity 287 Calcium 8.6 Total Bilirubin 0.3 AST 13 ALT 14 Alkaline Phosphata se 115 H Troponin T Baselin e Troponin T 120 Min cowlitz Delta Troponin T Troponin T Hi Sens 6Hr 8.07 Troponin T Hi Sens 6Hr Delta -0.93 L Total Protein 6.2 L Albumin 3.7 Globulin 2.5 Triglycerides 97 Cholesterol 109 LDL Cholesterol, C alc 51 HDL Cholesterol 39 L LDL/HDL Ratio 1.31 Cholesterol/HDL Ra letty 2.79 05/19/21 05/18/21 05/18/21 05:29 23:59 21:51 WBC 7.9 RBC 3.81 L Hgb 12.3 Hct 35.3 L MCV 92.7 MCH 32.3 MCHC 34.8 RDW 13.5 Plt Count 235 MPV 10.3 Neut % (Auto) 50.0 Lymph % (Auto) 40.6 [place] % (Auto) 6.9 Eos % (Auto) 1.4 Baso % (Auto) 0.6 Neut # (Auto) 3.92 Lymph # (Auto) 3.2 [place] # (Auto) 0.5 Eos # (Auto) 0.1 Baso # (Auto) 0.1 Nucleated RBC % (a uto) 0 Nucleated RBCs # 0.0 Sodium Potassium Chloride Carbon Dioxide Anion Gap BUN Creatinine GFR Calculation Glucose Estimat Average Gl ucose Hemoglobin A1c Calculated Osmolal ity Calcium Total Bilirubin AST ALT Alkaline Phosphata se Troponin T Baselin e 9 Troponin T 120 Min cowlitz 8.69 Delta Troponin T -0.31 L Troponin T Hi Sens 6Hr Troponin T Hi Sens 6Hr Delta Total Protein Albumin Globulin Triglycerides Cholesterol LDL Cholesterol, C alc HDL Cholesterol LDL/HDL Ratio Cholesterol/HDL Ra letty Vitals: Last Vital Signs Temp 98.5 F 05/19/21 12:00 Pulse 72 05/19/21 12:00 Resp 17 05/19/21 12:00 BP 135/70 05/19/21 12:00 Pulse Ox 94 05/19/21 12:00 Discharge Plan Discharge Patient Disposition: Home Condition: Stable Prescriptions: New pantoprazole 40 mg Tablet,Delayed Release (Dr/Ec) 40 mg PO DAILY Qty: 30 RF: 0 metoprolol tartrate 50 mg Tablet 25 mg PO BID@0900,2100 Qty: 30 RF: 0 Continued aspirin 81 mg tablet,delayed release (DR/EC) 81 mg PO DAILY RF: 0 nitroglycerin [Nitrostat] 0.4 mg tablet, sublingual 0.4 mg SUBLINGUAL Q5M PRN (Reason: chest pain) Qty: 30 RF: 1 atorvastatin 40 mg tablet 40 mg PO DAILY Qty: 90 RF: 3 gabapentin 100 mg capsule 100 mg PO TID Qty: 90 RF: 0 Discontinued metoprolol tartrate 50 mg tablet 50 mg PO BID Qty: 180 RF: 3 Discharge Orders: Discharge Order (Routine); Ordered 05/19/21 Ordered By: Hugo Medina Referrals: Simone Bae M.D [Physician] - 2 weeks Tamiko Marquez MD [Primary Care Provider] - 4-7 days Discharge Diet: Cardiac Discharge Activity: Increase activity as tolerated Patient Instructions: Opioid Safety Activity Restrictions/Additional Instructions: Return for any worsening discomfort Note that your metoprolol has decreased to 25 mg twice daily. Keep track of your blood pressure and pulse, and report them to your primary care provider and cardiology. Follow-up with your power marketer in 2 weeks, primary care provider 3 to 5 days. Discharge Attestations Time Spent in Discharge Care*: greater than 30 min Quality Metrics Clinical Quality Measures During this hospital stay, did patient experience: None Coding Level of Care Code Acute Roxg FW VLADIMIR note Diagnoses Chest pain R07.9 Angina pectoris, unstable I20.0
== END 2021-05-19 16:00 | disposition home or self-care (01) ==
LOC: ER 23:13 → MEDSURG 05-19 06:04
PROVIDERS: Admitting Provider Student in an Organized Health Care Education/Training Program; Emergency Provider Emergency Medicine; PCP Family Medicine; Visit Provider Internal Medicine
DX: I20.0 Unstable angina (principal); R07.9 Chest pain, unspecified; I10 Essential (primary) hypertension; E78.5 Hyperlipidemia, unspecified; F17.200 Nicotine dependence, unspecified, uncomplicated; Z79.82 Long term (current) use of aspirin; Z79.899 Other long term (current) drug therapy
CPT/HCPCS: 71045; 78452; 80053; 80061; 83036; 84484; 85025; 93005; 93017; 99285; A9500; G0378; J0280; J2785

== ENCOUNTER → 2021-12-22 18:13 | Outpatient (BNVA) | payer MEDICARE, SELFPAY | PROVIDERS: PCP Family Medicine; Visit Provider Family Medicine | DX: C44.509 Unspecified malignant neoplasm of skin of other part of trunk (principal); E78.5 Hyperlipidemia, unspecified; I10 Essential (primary) hypertension; M79.604 Pain in right leg; M79.605 Pain in left leg | CPT/HCPCS: 80053; 80061; 84443; 85025 ==

== ENCOUNTER 2022-11-10 20:02 | Emergency (ER) | payer MEDICARE, SELFPAY ==
[2022-11-10 20:04] VITALS: BP 169/80; PULSE 56; RESP 14; TEMP 36.6; O2SAT 98
[2022-11-10 20:21] VITALS: BP 178/73; PULSE 54; RESP 18; O2SAT 97
--- NOTE | 2022-11-10 20:24 | ED_ITS ---
HPI - Eye Problem General: Chief complaint: Eye Problems Stated complaint: Rt Eye Pain Time Seen by Provider: 11/10/22 20:23 History of Present Illness: 72-year-old female comes in with right eye pain since yesterday. Patient denies any change in vision. Patient does have a history of cataract surgery and glaucoma. On exam patient appears nontoxic. Patient appears in mild to moderate pain. Review of Systems General: Reports: 10 or more systems reviewed and unremarkable except in HPI and below Eyes: Reports: eye discomfort Card: Denies: chest pain Resp: Denies: dyspnea : Denies: flank pain PFS ED PFSH: Medical History (Updated 11/10/22 @ 20:44 by MANOJ Neville) History of myocardial infarction (~2014) Surgical History H/O heart artery stent (2014) 5 placed Family History Other Cancer Diabetes Hypertension Social History Smoking and tobacco status: current every day smoker Alcohol intake: never Substance/Drug Use: never Lives independently: Yes Marital status: Physical Exam Const: COMMON NORMALS: alert HENMT: COMMON NORMALS: normocephalic HEAD & SCALP: normocephalic Eye: COMMON NORMALS: conjunctivae normal GENERAL EYE: appearance normal, both eyes and all related structures ALIGNMENT: Yes alignment normal EYELID: eyelids normal CONJUNCTIVA: Yes conjunctivae normal CORNEA: Yes fluorescein used (Abrasion noted at the 4 o'clock position of the iris border, 3 mm) EOM: Yes EOM abnormal OTHER: Tonometry pressure read 8 mmHg over 6 test to the right eye Neck/C-Spine: COMMON NORMALS: full ROM Resp: COMMON NORMALS: normal respiratory effort and clear to auscultation bilaterally AUSCULTATION: clear to auscultation bilaterally Cardio: COMMON NORMALS: regular rate and regular rhythm RATE: regular rate RHYTHM: regular rhythm Extremity: COMMON NORMALS: normal to inspection Neuro: SENSORIUM/ORIENTATION: Yes alert Skin: COMMON NORMALS: turgor normal GENERAL SKIN EXAM: turgor normal Course Vital Signs: Vital signs: Vital Signs Temperature 97.8 F 11/10/22 20:04 Pulse Rate 54 L 11/10/22 20:21 Respiratory Rate 18 11/10/22 20:21 Blood Pressure 178/73 11/10/22 20:21 Pulse Oximetry 97 11/10/22 20:21 Oxygen Delivery Me thod Room Air 11/10/22 20:21 MDM - Eye Problem Medical Decision Making Patient came in today for complaints of pain to the right eye. On exam no foreign body was noted. Fluorescein stain noted a abrasion approximately 3 mm at the iris border around 4:00. Pupils are equal and reactive. Tonometry pressure noted 8 mmHg in the right eye. Differential diagnosis considered was closed angle glaucoma, corneal abrasion, foreign body, migraine, stroke syndrome. Patient had immediate relief after use of tetracaine. Fluorescein staining noted the abrasion. Recommend continued antibiotic drops, Maxitrol, 1 drop 4 times a day for the next 7 days. Patient was also given tetracaine to use 1 drop every 4 hours as needed for severe pain to the eye enough to use a longer than 48 hours. Patient stated understanding and agreed to plan. Discharge Plan Discharge Patient Disposition: Home Clinical Impression: Corneal abrasion Condition: Stable Prescriptions: No Action aspirin 81 mg tablet,delayed release (DR/EC) 81 mg PO DAILY nitroglycerin [Nitrostat] 0.4 mg tablet, sublingual 0.4 mg SUBLINGUAL Q5M PRN (Reason: chest pain) Qty: 30 1RF Rx Instructions: do not exceed 3 doses per episode pantoprazole 40 mg tablet,delayed release (DR/EC) 40 mg PO DAILY Qty: 90 3RF gabapentin 100 mg capsule 100 mg PO TID PRN (Reason: leg pain) Qty: 90 0RF metoprolol tartrate 25 mg tablet 25 mg PO BID@0900,2100 Qty: 180 3RF atorvastatin 40 mg tablet 40 mg PO DAILY Qty: 30 0RF Rx Instructions: MUST have follow-up for further refills Discharge Orders: Discharge ED (Routine); Ordered 11/10/22 Ordered By: Jorge Castellon Referrals: Tamiko Marquez MD [Primary Care Provider] - Discharge Diet: Usual diet Discharge Activity: Increase activity as tolerated Patient Instructions: Corneal Abrasion (DC) Activity Restrictions/Additional Instructions: You may use tetracaine, pain eyedrops, 1 drop to the affected eye every 3 hours as needed for severe eye pain. Do not use these eyedrops for longer than 48 hours. Use antibiotic eyedrops, neomycin?polymyxin?dexamethasone, 1 drop to the affected eye 4 times a day for the next 7 days. Follow-up with eye career and transition teacher in 2 to 3 days for recheck. Return to ED for new concerns or worsening symptoms. Coding Level of Care Code ED Corn Husker Machine Operator for Winston Rios
[2022-11-10] MEDS: tetracaine 0.5% Op Soln 4 mL Btl 1 DROP EYE-RIGHT (20:26)
[2022-11-10] MEDS: fluorescein 1 mg Strip EYE-RIGHT (20:26)
[2022-11-10 20:56] VITALS: BP 165/75; PULSE 53; RESP 18; O2SAT 95
[2022-11-10 20:58] VITALS: BP 165/75; PULSE 55; RESP 18; O2SAT 95
== END 2022-11-10 21:02 | disposition home or self-care (01) ==
PROVIDERS: Emergency Provider Nurse Practitioner Family; PCP Family Medicine
DX: S05.01XA Injury of conjunctiva and corneal abrasion without foreign body, right eye, initial encounter (principal); Z79.82 Long term (current) use of aspirin; I25.2 Old myocardial infarction; F17.210 Nicotine dependence, cigarettes, uncomplicated; X58.XXXA Exposure to other specified factors, initial encounter
CPT/HCPCS: 99283

== ENCOUNTER 2023-01-05 12:42 | Outpatient (CLI) | payer MEDICARE, SELFPAY ==
--- NOTE | 2023-01-05 12:51 | MR_ITS ---
WS: [id number] MRI BRAIN WITH HIGH-RESOLUTION IMAGING THROUGH THE INTERNAL AUDITORY CANALS WITHOUT AND WITH CONTRAST HISTORY: MENIERE' DISEASE, LEFT EAR. UNSPECIFIED SENSORINEURAL HEARING loss. COMPARISON: None available. TECHNIQUE: Multiplanar, multisequence imaging is performed through the brain. Additional 3 mm imaging performed in multiple planes through the internal auditory canal. Postcontrast imaging with 15 ml's of MultiHance. No acute intracranial hemorrhage, midline shift, edema or mass effect. Extensive bilateral T2 and FLAIR signal hyperintensities throughout the white matter. Lesions are in the supratentorial white matter and are extensive bilaterally. These white matter lesions are subcort ical and periventricular. No large prior infarct. Ventricles and extra-axial spaces are normal. No inferior displacement of cerebellar tonsils. Clivus and pituitary gland are normal. Internal and external auditory canals: Unremarkable. Cranial nerves VII and VIII complexes: Unremarkable. No enhancement or mass. Cerebellopontine angles: Normal. Paranasal sinuses: Normal. Mastoid air cells: Normal. Calvarium and scalp: Normal. Visualized jackson of [place] and dural venous sinuses demonstrate no abnormality. MR/MR iac's wo/w con* [id number] IMPRESSION: 1. No mass or signal abnormality at the cerebellopontine angle or along the in ternal auditory canals. 2. Moderate diffuse small vessel ischemic disease. No prior infarct and no hem orrhage.
[2023-01-05] MEDS: gadobenate dimeglumine 20 mL vial IV (13:39)
== END 2023-01-05 12:43 | disposition home or self-care (01) ==
LOC: RAD 12:45
PROVIDERS: PCP Family Medicine; Visit Provider Otolaryngology
DX: H81.02 Meniere's disease, left ear (principal); H90.8 Mixed conductive and sensorineural hearing loss, unspecified; H93.13 Tinnitus, bilateral; I67.89 Other cerebrovascular disease
CPT/HCPCS: 70553; A9577

== ENCOUNTER → 2023-06-16 15:05 | Outpatient (BNVA) | payer MEDICARE, SELFPAY | PROVIDERS: PCP Family Medicine; Visit Provider Internal Medicine | DX: I25.10 Atherosclerotic heart disease of native coronary artery without angina pectoris (principal); I10 Essential (primary) hypertension; F17.200 Nicotine dependence, unspecified, uncomplicated; I25.2 Old myocardial infarction | CPT/HCPCS: 99214 ==

== ENCOUNTER → 2024-03-15 15:19 | Outpatient (BNVA) | payer MEDICARE, SELFPAY | PROVIDERS: PCP Family Medicine; Visit Provider Internal Medicine | DX: I25.10 Atherosclerotic heart disease of native coronary artery without angina pectoris (principal); I10 Essential (primary) hypertension; Z72.0 Tobacco use; I25.2 Old myocardial infarction; Z79.82 Long term (current) use of aspirin | CPT/HCPCS: 99214 ==

== ENCOUNTER 2024-06-25 09:59 | Emergency (ER) | payer MEDICARE, SELFPAY ==
--- NOTE | 2024-06-25 10:19 | ECG_ITS ---
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 Measurements Intervals Twain Rate: 62 P: 62 ME: 132 QRS: 7 QRSD: 73 T: 54 QT: 393 QTc: 401 Interpretive Statements SINUS RHYTHM LOW QRS VOLTAGE IN PRECORDIAL LEADS [QRS DEFLECTION < 1.0 mV IN CHEST LEADS] ANTEROSEPTAL MYOCARDIAL INFARCTION , OF INDETERMINATE AGE [40+ ms Q WAVE IN V1-V4] Compared to ECG 05/19/2021 04:16:17 Low QRS voltage now present Myocardial infarct finding now present Electronically Signed On 06-25-2024 20:04:03 EMERGENCY DEPARTMENT COORDINATOR by Simone Bae M.D. [id number]
[2024-06-25 10:22] VITALS: BP 148/78; PULSE 58; RESP 18; TEMP 36.7; O2SAT 96; BMI 24.9
--- NOTE | 2024-06-25 10:30 | XRR_ITS ---
PROCEDURE INFORMATION: Exam: XR Chest Exam date and time: 06/25/2024 11:00 AM Age: 74 years old Clinical indication: Pain; Cough; Angina pectoris; Prior surgery; Surgery date: 6+ months; Surgery type: Cardiac stents; Additional info: Chest pain TECHNIQUE: Imaging protocol: Radiologic exam of the chest. Views: 1 view. COMPARISON: CR XR chest 1V portable [id number] 05/18/2021 9:57 PM FINDINGS: Lungs: There is a round masslike opacity projecting over the left upper lobe measuring 4.1 x 4.3 cm concerning for a neoplasm. CT chest with IV contrast is recommended. Right lung appears clear. Pleural spaces: Unremarkable. No pleural effusion. No pneumothorax. Heart/Mediastinum: Unremarkable. No cardiomegaly. Bones/joints: Unremarkable. XR/XR chest 1V portable [id number] IMPRESSION: Masslike opacity in the left upper lobe concerning for neoplasm. CT chest with IV contrast is recommended to further evaluate.
[2024-06-25 10:58] LABS: Basophils # 0.1 10^3/uL (0.0-0.1); Basophils % 0.6 %; Eosinophils # 0.2 10^3/uL (0.0-0.8); Hematocrit 45.9 % (36-47); Lymphocytes # 2.9 10^3/uL (0.8-4.8); Lymphocytes % 30.5 %; Mean Corpuscular HGB Conc 32.5 g/dL (30-55); Mean Corpuscular Hemoglobin 29.7 pg (27-33); Mean Corpuscular Volume 91.4 fl (85-98); Mean Platelet Volume 9.7 fL (7.4-10.4); Monocytes # 0.7 10^3/uL (0.2-0.9); Monocytes % 6.8 %; Neutrophils # 5.66 10^3/uL (1.8-7.7); Neutrophils % 59.7 %; Nucleated Red Blood Cells % 0 %; Platelet Count 390 10^3/cmm (157-399); Red Blood Count 5.02 10^6/uL (3.85-5.65); Red Cell Distribution Width 14.3 % (12.1-15.1); White Blood Count 9.49 10^3/uL (3.29-11.43)
[2024-06-25 11:20] LABS: Troponin(5th) Baseline 11 ng/L (0-10)
[2024-06-25 11:24] LABS: Alanine Aminotransferase 14 U/L (0-33); Albumin Level 4.6 g/dL (3.5-5.2); Alkaline Phosphatase 155 U/L (35-105); Anion Gap 15.1 (5-19); Aspartate Amino Transferase 14 U/L (0-32); Blood Urea Nitrogen 6 mg/dL (8-23); Calcium 10.1 mg/dL (8.5-10.5); Carbon Dioxide 25 mmol/L (22-29); Chloride 105 mmol/L (98-107); Creatinine Clr Calc Pharmacy 59.3337; Globulin 3.2 g/dL (1.3-4.6); Glucose 208 mg/dL (65-115); Osmolality Calculated 296 mOsm/kg (285-295); Potassium 4.1 mmol/L (3.5-5.1); Sodium 141 mmol/L (136-145); Total Bilirubin 0.3 mg/dL (0.15-1.2); Total Protein 7.8 g/dL (6.6-8.7)
--- NOTE | 2024-06-25 11:36 | CT_ITS ---
WS: [id number] CT CHEST ANGIOGRAPHY WITH REFORMATS HISTORY: mass in lung, sob, TECHNIQUE: Contiguous axial images are obtained through the chest during arterial injection of intrav enous contrast. Images are reconstructed to evaluate the pulmonary arteries. MIP imaging also reviewe d. All CT scans at [facility] use at least one of these dose optimization techniques: automat ed exposure control; mA and/or kV adjustment per patient size (includes targeted exams where dose is matched to clinical indication); or iterative reconstruction. CONTRAST: Omnipaque 350; 100 mL IV. DLP: 307.66 mGy.cm COMPARISON: Chest radiograph 06/25/2024 Good opacification of the pulmonary arteries. No pulmonary embolism is identified. Partial encasement of the proximal LEFT upper lobe pulmonary arteries by the solid mass in the LEFT upper lobe. No enla rgement of the pulmonary artery. No RIGHT heart strain. Ectatic thoracic aorta. Aberrant RIGHT subcla vian artery extends posterior to the esophagus. Moderate atherosclerotic plaque in the thoracic aorta . There is a lobulated soft tissue mass centered in the LEFT upper lobe measuring 3.7 x 3.8 x 5.1 cm. T here is a lobulated component and there is also an endobronchial component that is noted beginning in the proximal LEFT upper lobe bronchus. Endobronchial mass does branching to the smaller upper lobe b ronchial tree. There are additional smaller satellite lesions in the LEFT upper lobe. No additional mass. No pericardial or pleural effusions. No definite hilar lymph nodes. There is soft tissue extending to the LEFT hilum. This soft tissue is contiguous with the endobronchial tumor in t he main tumor in the LEFT upper lobe. Postobstructive atelectasis medial LEFT upper lobe. Small hiatal hernia. LEFT adrenal mass 10 x 11 mm. Prior cholecystectomy. Hepatic steatosis. Lobulate d contour of the LEFT kidney the lateral lobulation of the LEFT kidney may be due to a rotated positi on of the kidney. No osteoblastic or osteolytic bone disease. Subcutaneous well-circumscribed soft tissue in the posterior, upper thorax. Just to the RIGHT of midl ine is a 2.9 x 2.0 cm well-circumscribed mass. Soft tissue metastatic site versus epidermoid. CT/CT angio chest PE protcl [id number] IMPRESSION: 1. No pulmonary embolism. 2. Solid mass LEFT upper lobe measures 3.7 x 3.8 x 5.1 cm. Lobulated mass with endobronchial component. Endobronchial component extends into the proximal LEF T upper lobe pulmonary artery and branches distally. 3. Aberrant RIGHT subclavian artery. 4. No definite hilar adenopathy. 5. Subsegmental postobstructive atelectasis medial LEFT upper lobe. 6. Indeterminate LEFT adrenal mass 10 x 11 mm. 7. Prior cholecystectomy. 8. Lobulated contour of the LEFT kidney. Lobular contour may be due to a rotat ed position of the kidney. This can be further evaluated by renal ultrasound to exclude solid mass. 9. Subcutaneous soft tissue mass 2.9 x 2.0 cm in the posterior RIGHT upper tho rax. Epidermoid favored versus metastatic subcutaneous nodule.
--- NOTE | 2024-06-25 11:39 | ED_ITS ---
HPI - SOB/Dyspnea 2 General: Chief Complaint: Shortness of Breath/Dyspnea Stated Complaint: cough, tight chest Time Seen by Provider: 06/25/24 11:30 History of Present Illness: HPI Narrative: 74-year-old female with a history of tob acco dependence and hypertension who presents emergency room with shortness of breath. She says this been going on for about a month. She was seen by her primary and put on antibiotics for a while and improved briefly but then says she started being short of breath again. She says normally she does not wheeze. She does smoke. On exam today she has scattered wheeze. She is not requiring oxygen. She says her chest feels tight. Related Data Home Medications Medication Instructions Recorded Confirmed aspirin 81 mg tablet,delayed 81 mg PO QPM 06/25/24 06/25/24 release metoprolol tartrate 25 mg tablet 25 mg PO BEDTIME 06/25/24 06/25/24 Previous Rx's Medication Instructions Recorded nitroglycerin 0.4 mg sublingual 0.4 mg sublingual Q5M PRN chest 06/16/23 tablet (Nitrostat) pain #30 tabs albuterol sulfate 90 mcg/actuation 2 inh inhalation Q4H PRN shortness 06/25/24 aerosol inhaler of breath or wheezing #6.7 grams dexamethasone 6 mg tablet 6 mg PO DAILY 5 days #5 tabs 06/25/24 doxycycline monohydrate 100 mg 100 mg PO BID 10 days #20 caps 06/25/24 capsule lorazepam 1 mg tablet (Ativan) 1 mg PO BID PRN heart pounding #20 06/25/24 tabs Allergies Allergy/AdvReac Type Severity Reaction Status Date / Time prednisone Allergy ADR-Chest Verified 03/15/24 15:44 Pain Review of Systems 2 Narrative: Constitutional symptoms: Negative except as documented in HPI. Skin symptoms: Negative except as documented in HPI. Eye symptoms: Negative except as documented in HPI. ENMT symptoms: Negative except as documented in HPI. Respiratory symptoms: Negative except as documented in HPI. Cardiovascular symptoms: Negative except as documented in HPI. Gastrointestinal symptoms: Negative except as documented in HPI. Genitourinary symptoms: Negative except as documented in HPI. Musculoskeletal symptoms: Negative except as documented in HPI. Neurologic symptoms: Negative except as documented in HPI. Psychiatric symptoms: Negative except as documented in HPI. Endocrine symptoms: Negative except as documented in HPI. PFS ED 2 PFS: Medical History (Updated 06/25/24 @ 13:08 by Aminata Peacock MD) History of myocardial infarction (~2014) Surgical History H/O heart artery stent (2015) 5 placed Family History Other Cancer Diabetes Hypertension Social History Smoking and tobacco/nicotine status: current every day tobacco/nicotine user Alcohol intake: never Substance/Drug Use: never Lives independently: Yes Marital status: Physical Exam 2 Narrative: EXAM NARRATIVE: General: Alert, no acute distress. Skin: Warm, dry. Head: Normocephalic, atraumatic. Neck: Supple, trachea midline. Eye: Extraocular movements are intact. Ears, nose, mouth and throat: Oral mucosa moist. Cardiovascular: Regular rate and rhythm, Normal peripheral perfusion. Respiratory: coarse, scattered wheeze, mild increased wob. tachypnea, breath sounds are equal, Symmetrical chest wall expansion. Gastrointestinal: Soft, Nontender, Non distended, Normal bowel sounds. Musculoskeletal: Normal ROM, no deformity. Neurological: Alert and oriented to person, place, time, and situation, No focal neurological deficit observed. Psychiatric: Cooperative, appropriate mood & affect. Course 2 Vital Signs: Vital signs: Vital Signs Temperature 98.0 F 06/25/24 10:22 Pulse Rate 73 06/25/24 12:45 Respiratory Rate 18 06/25/24 12:31 Blood Pressure 137/52 06/25/24 12:42 Pulse Oximetry 99 06/25/24 12:42 Oxygen Delivery Me thod Room Air 06/25/24 12:42 MDM - SOB/Dyspnea Medical Decision Making Differential diagnosis for patient with shortness of breath includes but is not limited to and based on the above HPI, review of systems and physical exam: Pneumonia. Bronchitis. Asthma or COPD with acute exacerbation. Acute coronary syndrome / MS. Pulmonary embolism. Anxiety. Congestive heart failure. Viral infections including influenza and Covid-19. Atrial fibrillation. Anxiety. Pleural effusion. Pneumothorax. Orders placed to evaluate differential diagnosis based on the above differential, HPI and physical exam Chest x-ray: There is a large nodular masslike structure in the left upper lobe. This is concerning for neoplasm. CT chest was recommended. This was reviewed and interpreted by myself the emergency room physician. I also reviewed the radiology report. Lab Review: Laboratory results were reviewed and interpreted by myself the emergency room physician. No leukocytosis. No anemia. No renal failure. CTA of the chest with PE protocol: Solid left upper lobe lung mass that measures about 4 x 4 x 5 cm. Lobulated with endobronchial component. Extends into the pulmonary artery and branches distally. Other findings as listed below. This was reviewed and interpreted by myself the emergency room physician. I also reviewed the radiology report. I reviewed the patient's medical record. Reexamination: Patient has some improvement in her wheeze but still has some wheeze. We have discussed at length the findings on the CT scan and that I have concern this may be a mass. She is concerned about black mold at her home. I suggest that might be concerning but your tobacco use is much more concerning. No altered mental status. No focal motor deficits. Consultation: I talked with Dr. Hamilton who is on-call for oncology. He is aware of the patient and the findings and will be prepared to see her in clinic if she chooses to come to his clinic. Assessment and plan: COPD with acute exacerbation (patient does not have official COPD diagnosis) Wheezing Upper respiratory infection Lung mass Tobacco dependence ?IV Solu-Medrol, 2 updrafts and IV doxycycline in the emergency room. - Discharged home - Discussed plan with patient. Answered any questions. - Evaluation and treatment of this problem were appropriate in the emergency setting. Lab Data 06/25/24 10:48 06/25/24 10:48 Labs/Radiology: Radiology Impressions Chest X-Ray 06/25/24 10:30 IMPRESSION: Masslike opacity in the left upper lobe concerning for neoplasm. CT chest with IV contrast is recommended to further evaluate. Chest CTA 06/25/24 11:36 IMPRESSION: 1. No pulmonary embolism. 2. Solid mass LEFT upper lobe measures 3.7 x 3.8 x 5.1 cm. Lobulated mass with endobronchial component. Endobronchial component extends into the proximal LEFT upper lobe pulmonary artery and branches distally. 3. Aberrant RIGHT subclavian artery. 4. No definite hilar adenopathy. 5. Subsegmental postobstructive atelectasis medial LEFT upper lobe. 6. Indeterminate LEFT adrenal mass 10 x 11 mm. 7. Prior cholecystectomy. 8. Lobulated contour of the LEFT kidney. Lobular contour may be due to a rotated position of the kidney. This can be further evaluated by renal ultrasound to exclude solid mass. 9. Subcutaneous soft tissue mass 2.9 x 2.0 cm in the posterior RIGHT upper thorax. Epidermoid favored versus metastatic subcutaneous nodule. Laboratory Results WBC 9.49 10^3/uL (3.29-11.43) 06/25/24 10:48 RBC 5.02 10^6/uL (3.85-5.65) 06/25/24 10:48 Hgb 14.90 g/dL (11.27-16.99) 06/25/24 10:48 Hct 45.9 % (36-47) 06/25/24 10:48 MCV 91.4 fl (85-98) 06/25/24 10:48 MCH 29.7 pg (27-33) 06/25/24 10:48 MCHC 32.5 g/dL (30-55) 06/25/24 10:48 RDW 14.3 % (12.1-15.1) 06/25/24 10:48 Plt Count 390 10^3/cmm (157-399) 06/25/24 10:48 MPV 9.7 fL (7.4-10.4) 06/25/24 10:48 Neut % (Auto) 59.7 % 06/25/24 10:48 Lymph % (Auto) 30.5 % 06/25/24 10:48 [place] % (Auto) 6.8 % 06/25/24 10:48 Eos % (Auto) 2.0 % 06/25/24 10:48 Baso % (Auto) 0.6 % 06/25/24 10:48 Neut # (Auto) 5.66 10^3/uL (1.8-7.7) 06/25/24 10:48 Lymph # (Auto) 2.9 10^3/uL (0.8-4.8) 06/25/24 10:48 [place] # (Auto) 0.7 10^3/uL (0.2-0.9) 06/25/24 10:48 Eos # (Auto) 0.2 10^3/uL (0.0-0.8) 06/25/24 10:48 Baso # (Auto) 0.1 10^3/uL (0.0-0.1) 06/25/24 10:48 Nucleated RBC % (auto) 0 % 06/25/24 10:48 Nucleated RBCs # 0.0 /100WBC 06/25/24 10:48 Sodium 141 mmol/L (136-145) 06/25/24 10:48 Potassium 4.1 mmol/L (3.5-5.1) 06/25/24 10:48 Chloride 105 mmol/L (98-107) 06/25/24 10:48 Carbon Dioxide 25 mmol/L (22-29) 06/25/24 10:48 Anion Gap 15.1 (5-19) 06/25/24 10:48 BUN 6 mg/dL (8-23) L 06/25/24 10:48 Creatinine 0.6 mg/dL (0.5-0.9) 06/25/24 10:48 GFR Calculation Not Reportable 06/25/24 10:48 Glucose 208 mg/dL (65-115) H 06/25/24 10:48 Calculated Osmolality 296 mOsm/kg (285-295) H 06/25/24 10:48 Calcium 10.1 mg/dL (8.5-10.5) 06/25/24 10:48 Total Bilirubin 0.3 mg/dL (0.15-1.2) 06/25/24 10:48 AST 14 U/L (0-32) 06/25/24 10:48 ALT 14 U/L (0-33) 06/25/24 10:48 Alkaline Phosphatase 155 U/L (35-105) H 06/25/24 10:48 Troponin T Baseline 11 ng/L (0-10) H 06/25/24 10:48 Troponin T 120 Minute 8.11 ng/L (0-10) 06/25/24 12:49 Total Protein 7.8 g/dL (6.6-8.7) 06/25/24 10:48 Albumin 4.6 g/dL (3.5-5.2) 06/25/24 10:48 Globulin 3.2 g/dL (1.3-4.6) 12/23/24 10:48 All radiology interpretation(s) finalized by discharge Discharge Plan Discharge Patient Disposition: Home Clinical Impression: COPD with acute exacerbation, Mass of lung, Tobacco dependence Condition: Stable Prescriptions: New lorazepam [Ativan] 1 mg tablet 1 mg PO BID PRN (Reason: heart pounding) Qty: 20 0RF Rx Instructions: for anxiety caused by steroids dexamethasone 6 mg tablet 6 mg PO DAILY 5 Days Qty: 5 0RF doxycycline monohydrate 100 mg capsule 100 mg PO BID 10 Days Qty: 20 0RF albuterol sulfate 90 mcg/actuation HFA aerosol inhaler 2 inh inhalation Q4H PRN (Reason: shortness of breath or wheezing) Qty: 6.7 0RF Rx Instructions: Please provide patient with a spacer No Action nitroglycerin [Nitrostat] 0.4 mg tablet, sublingual 0.4 mg SUBLINGUAL Q5M PRN (Reason: chest pain) Qty: 30 1RF Rx Instructions: do not exceed 3 doses per episode aspirin 81 mg tablet,delayed release (DR/EC) 81 mg PO QPM metoprolol tartrate 25 mg tablet 25 mg PO BEDTIME Discharge Orders: Discharge ED (Routine); Ordered 06/25/24 Ordered By: Aminata Peacock Referrals: Arnoldo Oneil MD [Hospitalist] - 4-7 days (Please call for an appointment with oncology to discuss the findings on her chest CT.) Tamiko Marquez MD [Primary Care Provider] - Discharge Diet: Usual diet Discharge Activity: Increase activity as tolerated Patient Instructions: Opioid Safety, Pain Management Activity Restrictions/Additional Instructions: Please set up for a follow-up appointment with your primary provider as soon as possible. Also call Dr. Hamilton's office to set up appointment as well. Thank you for choosing [facility] for your healthcare needs today. Please realize this is an emergency room and that we are providing you with a medical screening exam and this may not be complete and all inclusive of all the testing and or work up that you may need to determine your ailment or severity of your illness. You have been screened and evaluated and felt safe for discharge. Health conditions do change or evolve sometimes and as such it is important that you follow up with your Primary Doctor to be re checked, 3-5 days is a general good time frame for follow up. You are always welcome to return to the ED for re assessment if your symptoms are worsening or you have new concerns Coding Level of Care Code ED Temperature Logging Operator for Winston Rios
[2024-06-25] MEDS: iohexol 350 mg/mL 500 mL Btl (per mL) IV (11:55)
[2024-06-25] MEDS: ipratropium-albuterol 3 mL Neb INHALATION (12:28)
[2024-06-25] MEDS: albuterol 2.5 mg/3 mL Neb INHALATION (12:28)
--- NOTE | 2024-06-25 12:30 | ECG_ITS ---
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 Measurements Intervals [place] Rate: 59 P: 81 MN: 144 QRS: 10 QRSD: 87 T: 77 QT: 418 QTc: 417 Interpretive Statements SINUS BRADYCARDIA WITH SINUS ARRHYTHMIA LOW QRS VOLTAGE [QRS DEFLECTION < 0.5/1.0 mV IN LIMB/CHEST LEADS] POSSIBLE ANTERIOR MYOCARDIAL INFARCTION , PROBABLY OLD [30 ms Q WAVE IN V3/V4, OR R < 0.2 mV IN V4] Compared to ECG 06/25/2024 10:19:28 Sinus rhythm no longer present Myocardial infarct finding still present Electronically Signed On 06-25-2024 20:26:56 HEALTHCARE INTERPRETER by Simone Bae M.D. [email or web address]
[2024-06-25 12:31] VITALS: PULSE 63; RESP 18; O2SAT 95
[2024-06-25] MEDS: methylPREDNISolone sod succ 125 mg/2 mL INJ IVP (12:40)
[2024-06-25] MEDS: doxycycline 100 MG in sodium chloride 0.9% (plus) 100 ML IV (12:40)
[2024-06-25 12:42] VITALS: BP 137/52; PULSE 89; O2SAT 99
[2024-06-25 12:45] VITALS: PULSE 73
[2024-06-25 13:15] LABS: Troponin 5 2HR 8.11 ng/L (0-10)
[2024-06-25 13:19] LABS: Troponin 5 2HR Delta -2.89 ABS# (0-10)
[2024-06-25 13:42] LABS: Adenovirus Not Detected (NOT DETECT); Chlamydia Pneumoniae Not Detected (NOT DETECT); Coronavirus 229E,HKU1,NL63,OC4 Not Detected (NOT DETECT); Human Metapneumovirus Not Detected (NOT DETECT); Human Rhinovirus/Enterovirus Not Detected (NOT DETECT); Influenza A Not Detected (NOT DETECT); Influenza A H1 Not Detected (NOT DETECT); Influenza A H1-2009 Not Detected (NOT DETECT); Influenza A H3 Not Detected (NOT DETECT); Influenza B Not Detected (NOT DETECT); Mycoplasma Pneumoniae Not Detected (NOT DETECT); Parainfluenza Virus Type 1 Not Detected (NOT DETECT); Parainfluenza Virus Type 2 Not Detected (NOT DETECT); Parainfluenza Virus Type 3 Not Detected (NOT DETECT); Parainfluenza Virus Type 4 Not Detected (NOT DETECT); Respiratory Syncytial Virus A Not Detected (NOT DETECT); Respiratory Syncytial Virus B Not Detected (NOT DETECT); SARS-COV-2 Not Detected (NOT DETECT)
[2024-06-25 13:45] VITALS: BP 138/49; PULSE 82; O2SAT 94
== END 2024-06-25 13:46 | disposition home or self-care (01) ==
PROVIDERS: Physician Assistant; Emergency Provider Emergency Medicine; PCP Family Medicine
DX: J44.1 Chronic obstructive pulmonary disease with (acute) exacerbation (principal); R91.8 Other nonspecific abnormal finding of lung field; Z79.82 Long term (current) use of aspirin; F17.200 Nicotine dependence, unspecified, uncomplicated
CPT/HCPCS: 36415; 71045; 71275; 80053; 84484; 85025; 87486; 87581; 87633; 93005; 94640; 96374; 96375; 99285; J2919; J3490; J7613

== ENCOUNTER 2024-07-27 11:32 | Outpatient (CLI) | payer MEDICARE, SELFPAY ==
--- NOTE | 2024-07-27 11:48 | MR_ITS ---
WS: [id number] MRI HEAD WITH CONTRAST TECHNIQUE: Sagittal T1, T2 axial, T2 axial FLAIR, axial susceptibility weighted imaging, axial diffus ion weighted images, and coronal T2 images were obtained. Pre and post-T1 axial and post T1 coronal i mages. ADC and FSPGR images. CLINICAL INFORMATION: MALIGNANT ENDOBRONCHIAL NEOPLASM OF LEFT LUNG COMPARISON: MRI 01/05/2023 FINDINGS: No evidence of restricted diffusion to suggest acute ischemia. Ventricular system and basal cisterns are patent. Moderate small vessel changes. Moderate parenchymal volume loss. Small vessel changes in the shahnaz. Chronic infarct RIGHT cerebellum unchanged. Normal vascular flow voids at the skull base. N o extra-axial fluid collections. Paranasal sinuses are well aerated. Mastoid air cells are well aerat ed. No hemosiderin on the susceptibly weighted images. Normal optic chiasm and pituitary infundibulum. No abnormal gadolinium enhancement. Normal dural venous sinuses. MR/MR head wo/w con [id number] IMPRESSION: 1. No evidence of restricted diffusion to suggest acute ischemia. 2. Moderate small vessel changes with moderate parenchymal volume loss. 3. Small vessel changes in the shahnaz. 4. Chronic infarct RIGHT cerebellum unchanged. 5. No abnormal gadolinium enhancement.
== END 2024-07-27 11:33 | disposition home or self-care (01) ==
PROVIDERS: PCP Family Medicine; Visit Provider Internal Medicine Pulmonary Disease
DX: C34.92 Malignant neoplasm of unspecified part of left bronchus or lung (principal); R93.0 Abnormal findings on diagnostic imaging of skull and head, not elsewhere classified
CPT/HCPCS: 70553

== ENCOUNTER 2024-08-10 09:26 | Outpatient (CLI) | payer MEDICARE, SELFPAY ==
--- NOTE | 2024-08-10 09:31 | PETR_ITS ---
PROCEDURE INFORMATION: Exam: PET/CT Skull Base to Mid-thigh Exam date and time: 08/10/2024 10:32 AM Age: 74 years old Clinical indication: Abnormal findings; Solid mass left upper lobe measures 3.7 x 3.8 x 5.1 cm. Lobulated mass with endobronchial component. Endobronchial component extends into the proximal left upper lobe pulmonary artery and branches distally. Prior surgery; Surgery date: 6+ months; Surgery type: Cardiac stents; Additional info: Malignant neoplasm of unspecified part of left bronchus LABS AND CLINICAL REPORTS: Glucose: 136 mg/dl Treatment strategy for malignancy (PET staging): Initial Staging (PI) TECHNIQUE: Imaging protocol: Following at least four-hour fasting and following the injection of radiopharmaceutical, low dose CT images were obtained. Then, PET images were obtained. Attenuation corrected images were constructed using the CT scan. Fused images of PET and CT were reviewed. The standardized uptake values (SUV) reported below are maximum values within a region of interest, expressed in gm/ml. Exam includes orbital meatal line to mid-thigh. SUV normalization method: BodyWeight Radiopharmaceutical: 10.19 mCi F-18 FDG (Fluorodeoxyglucose), IV. Time of imaging post radiopharmaceutical administration: 49 minutes Injection site: left ac COMPARISON: CT angio chest PE protcl [id number] 06/25/2024 11:48 AM FINDINGS: Brain: Normal physiologic uptake. Pharynx: No abnormal uptake. Larynx: No abnormal uptake. Lungs, pleura and trachea: About 5.4 x 4 cm perihilar mass in the left upper lobe measures 20.6 SUV in keeping with known primary malignancy. It is causing occlusion of the left upper lobe bronchus and new complete collapse of the lobe obscuring the tumor on CT exam. Minimal left pleural effusion is new since prior exam. No suspicious nodules or masses in the right lung. Heart: No abnormal uptake. There is no cardiomegaly. Coronary artery calcification is present. There is no pericardial effusion. Mediastinal space: Increased uptake of 6.9 SUV in the distal esophagus with no abnormal wall thickening or dilatation for clinical correlation with esophagitis. There is a small hiatal hernia. Liver: No abnormal uptake. Maximum uptake is 3.3 SUV. Mildly increased density of liver parenchyma suggestive of mild fatty liver. Stable 0.8 cm cyst in the segment 2. Gallbladder and biliary ducts: No abnormal uptake. Status post cholecystectomy. Pancreas: No abnormal uptake. Spleen: No abnormal uptake. No splenomegaly. Adrenal glands: No abnormal uptake. Stable 1.5 x 1.2 cm hypodense nodule in the left adrenal compatible with benign adrenal cortical adenoma. No right adrenal nodules. Kidneys and ureters: Normal physiologic uptake. No hydronephrosis. 4.3 cm simple cyst exophytic medially from the lower pole of the left kidney with linear calcification along the anterior margin of the cyst. Stomach and bowel: No abnormal uptake. Mild diverticulosis of the sigmoid colon. Intraperitoneal and retroperitoneal spaces: No abnormal uptake. No ascites. Bladder: Normal physiologic uptake. Reproductive: No abnormal uptake. The uterus is absent post surgically. Vasculature: No abnormal uptake. No aortic aneurysm. Lymph nodes: No FDG avid lymphadenopathy in the neck, chest, abdomen, pelvis, and extremities. Skeleton: There are 2 small indeterminate FDG avid in the bones (0.8 cm linear focus measuring 4.1 SUV in the left aspect of T1 vertebral body on series 301, image 58, and 1.4 cm cortical focus measuring 3.6 SUV in the anterior cortex in the posterior aspect of the left iliac bone on series 301, image 208) with no corresponding CT abnormality. Otherwise there is no abnormal uptake in the visualized axial and appendicular skeleton. Soft tissues: No abnormal uptake in the visualized head, neck, chest, abdomen, pelvis, and extremities. PET/PET skull to thigh INIT [id number] IMPRESSION: 1. About 5.4 x 4 cm left upper lobe tumor with intense uptake of 20.6 SUV in keeping with known primary malignancy is causing bronchial obstruction with new complete collapse of the lobe since prior exam on 06/25/2024. No FDG avid lymphadenopathy in the chest. Two tiny FDG avid findings in the bones (in the left aspect of T1 vertebral body and in the left iliac bone measuring 4.1 SUV and 3.6 SUV respectively) are indeterminate with small bone metastases not entirely excluded. No other findings suspicious for distant FDG avid metastatic disease. Small left pleural effusion new since 06/25/2024 with no abnormal pleural FDG uptake. 2. Increased uptake in the distal esophagus associated with small hiatal hernia likely represents esophagitis. 3. Benign non FDG avid incidental findings (mild fatty liver, small liver cyst, prior cholecystectomy and hysterectomy, 1.5 cm left adrenal cortical adenoma, simple cyst in the left kidney, mild diverticulosis of the sigmoid colon).
== END 2024-08-10 09:27 | disposition home or self-care (01) ==
PROVIDERS: PCP Nurse Practitioner Family; Visit Provider Internal Medicine Pulmonary Disease
DX: C34.92 Malignant neoplasm of unspecified part of left bronchus or lung (principal); J98.09 Other diseases of bronchus, not elsewhere classified; J98.19 Other pulmonary collapse; J90 Pleural effusion, not elsewhere classified; K44.9 Diaphragmatic hernia without obstruction or gangrene; Z98.890 Other specified postprocedural states; I25.10 Atherosclerotic heart disease of native coronary artery without angina pectoris; R93.2 Abnormal findings on diagnostic imaging of liver and biliary tract; Z90.49 Acquired absence of other specified parts of digestive tract; R93.89 Abnormal findings on diagnostic imaging of other specified body structures; N28.1 Cyst of kidney, acquired; K57.30 Diverticulosis of large intestine without perforation or abscess without bleeding; R93.7 Abnormal findings on diagnostic imaging of other parts of musculoskeletal system
CPT/HCPCS: 78815; A9552

== ENCOUNTER 2024-09-03 22:35 | Emergency (ER) | payer MEDICARE, SELFPAY ==
[2024-09-03 22:48] VITALS: BP 111/63; PULSE 97; RESP 30; TEMP 36.6; O2SAT 79
--- NOTE | 2024-09-03 23:05 | CTR_ITS ---
PROCEDURE INFORMATION: Exam: CTA Chest With Contrast Exam date and time: 09/03/2024 11:51 PM Age: 74 years old Clinical indication: Shortness of breath and tachypnea; Sternal or substernal pain; Prior surgery; Surgery date: <1 month; Surgery type: Lung biopsy one month ago. Coronary stents; C/O substernal cp with SOB, tachypnea, and hypoxia. Biospy one month ago for left lung mass. ; Additional info: Chest pain, tachypnea, hypoxia, left lung mass TECHNIQUE: Imaging protocol: Computed tomographic angiography of the chest with contrast. Exam focused on the arteries. 3D rendering (Not supervised by radiologist): MIP and/or 3D reconstructed images were created by the technologist. Radiation optimization: All CT scans at this facility use at least one of these dose optimization techniques: automated exposure control; mA and/or kV adjustment per patient size (includes targeted exams where dose is matched to clinical indication); or iterative reconstruction. Contrast material: OMNI 350; Contrast volume: 51 ml; Contrast route: INTRAVENOUS (IV); COMPARISON: CT angio chest PE protcl [id number] 06/25/2024 11:48 AM RADIATION DOSE METRICS: Total DLP (mGy-cm): 300.15 FINDINGS: Pulmonary arteries: Normal. No pulmonary emboli. Great vessels off aortic arch: Incidental aberrant right subclavian artery. Aorta: Aortic atherosclerotic disease is seen without evidence of aneurysm. 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 Right apical pulmonary scarring. Pleural spaces: Unremarkable. No pneumothorax. No pleural effusion. Heart: Unremarkable. No cardiomegaly. No pericardial effusion. Coronary arteries: Coronary artery calcifications are present. Lymph nodes: Unremarkable. No enlarged lymph nodes. Liver: Nonspecific low-density foci of the liver statistically favor benign processes, no further follow-up needed, measuring as large as 7 mm. Gallbladder and biliary ducts: Status post cholecystectomy. No evidence of significant biliary obstruction. Bones/joints: Unremarkable. No acute fracture. Soft tissues: Stable subcutaneous cysts in the right upper back measuring 3.4 cm, likely sebaceous cyst. 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
--- NOTE | 2024-09-03 23:05 | ECG_ITS ---
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1950 Requested By: Maurice Bonilla Order Number: [id number] Reading MD: Measurements Intervals [place] Rate: 102 P: 104 IA: 142 QRS: 1 QRSD: 74 T: 91 QT: 341 QTc: 444 Interpretive Statements SINUS TACHYCARDIA WITH OCCASIONAL SUPRAVENTRICULAR PREMATURE COMPLEXES LOW QRS VOLTAGE IN PRECORDIAL LEADS [QRS DEFLECTION < 1.0 mV IN CHEST LEADS] POSSIBLE ANTERIOR MYOCARDIAL INFARCTION , PROBABLY OLD [30 ms Q WAVE IN V3/V4, OR R < 0.2 mV IN V4] ABNORMAL RHYTHM ECG No previous ECG available for comparison [email or web address] [id number]
[2024-09-03 23:10] VITALS: BP 116/70; PULSE 96; PULSE 99; RESP 26; RESP 37; O2SAT 89; O2SAT 90
[2024-09-03] MEDS: ipratropium-albuterol 3 mL Neb INHALATION (23:10)
--- NOTE | 2024-09-03 23:10 | W.ED.CHESTPA ---
HPI - Chest Pain General: Chief Complaint: Chest Pain Stated Complaint: chest pain, sob Time Seen by Provider: 09/03/24 23:01 History of Present Illness: Patient presents to the ER from home with complaints of substernal chest pain radiating to his shoulders and down the left arm, tachypnea, worsening shortness of breath. Upon arrival patient was satting 79% on room air. She is placed on 4 L of oxygen per nasal cannula she went up to 82%, when she was turned up to 6 L she went up to 93%. Patient does state that she has a mass on her left lung that they know about she had a biopsy of it done about a month ago at [facility] in [place]. She is waiting to get radiation started. Patient normally does not wear oxygen. Patient does have a history of cardiac stents.Patient denies any fever or chills, Related Data Home Medications ?Medication ?Instructions ?Recorded ?Confirmed aspirin 81 mg tablet,delayed 81 mg PO QPM 06/25/24 06/25/24 release metoprolol tartrate 25 mg tablet 25 mg PO BEDTIME 06/25/24 06/25/24 Previous Rx's ?Medication ?Instructions ?Recorded nitroglycerin 0.4 mg sublingual 0.4 mg sublingual Q5M PRN chest 06/16/23 tablet (Nitrostat) pain #30 tabs albuterol sulfate 90 mcg/actuation 2 inh inhalation Q4H PRN shortness 06/25/24 aerosol inhaler of breath or wheezing #6.7 grams lorazepam 1 mg tablet (Ativan) 1 mg PO BID PRN heart pounding #20 06/25/24 tabs Allergies Allergy/AdvReac Type Severity Reaction Status Date / Time prednisone Allergy ADR-Chest Verified 09/03/24 22:56 Pain Review of Systems General: Reports: 10 or more systems reviewed and unremarkable except in HPI and below PFSH ED PFSH: Medical History (Updated 09/04/24 @ 02:50 by Maurice Bonilla DO) History of myocardial infarction (~2014) Surgical History H/O heart artery stent (2014) 5 placed Family History Other Cancer Diabetes Hypertension Social History (Reviewed 03/03/25 @ 23:11 by DIAMOND Cedeno Smoking and tobacco/nicotine status: current every day tobacco/nicotine user Alcohol intake: never Substance/Drug Use: never Lives independently: Yes Marital status: Physical Exam Const: COMMON NORMALS: average body habitus, patient oriented x3, no limitations, healthy appearing, alert and well nourished; apparent distress (Mild distress) HENMT: COMMON NORMALS: normocephalic, atraumatic, hearing grossly normal bilaterally, external ears normal, Normal external nose present, moist oral mucous membranes and oropharynx normal HEAD & SCALP: normocephalic and atraumatic NOSE: Normal external nose present EXTERNAL EAR: Yes external ears normal Eye: COMMON NORMALS: Equal, round and reactive pupils present, EOMs intact bilaterally, conjunctivae normal and no scleral icterus CONJUNCTIVA: Yes conjunctivae normal PUPIL: Yes Equal, round and reactive pupils present Neck/C-Spine: COMMON NORMALS: full ROM, no lymphadenopathy, supple, no meningeal signs and no JVD Chest: COMMONS NORMALS: normal inspection of the chest and normal palpation of entire chest wall Resp: COMMON NORMALS: normal respiratory effort, No retractions and No use of accessory muscles; negative for clear to auscultation bilaterally (Decreased but clear bilaterally) AUSCULTATION: not clear to auscultation bilaterally (Decreased but clear bilaterally) Cardio: COMMON NORMALS: no JVD, regular rate, regular rhythm, S1 normal heart sound present, S2 normal heart sound present, No gallops present (Cardio), No clicks present (Cardio) and No murmurs present (Cardio) RATE: regular rate RHYTHM: regular rhythm HEART SOUNDS: S1 normal heart sound present and S2 normal heart sound present GI: COMMON NORMALS: Normal to inspection, nondistended, normoactive bowel sounds present, Soft to palpation, non-tender, No hepatosplenomegaly present and no masses PALPATION: Yes Soft to palpation and Yes No hepatosplenomegaly present Neuro: COMMON NORMALS: patient oriented x3 SENSORIUM/ORIENTATION: Yes alert MENINGEAL SIGNS: Yes no meningeal signs Course Vital Signs: Vital signs: Vital Signs Temperature 97.9 F 09/03/24 22:48 Pulse Rate 81 09/04/24 02:09 Respiratory Rate 24 H 09/04/24 02:09 Blood Pressure 169/69 09/04/24 02:09 Pulse Oximetry 94 09/04/24 02:09 Oxygen Delivery Me thod Nasal Cannula 09/04/24 02:09 Oxygen Flow Rate 6 09/04/24 02:09 MDM - Chest Pain Medical Decision Making White count 11.3, lactic acid 4.3, BUN/creatinine four 0.8, ABG pH 7.59, pCO2 20, pO2 57, HCO3 19, BNP 729, troponin baseline 13, 2-hour troponin 11.3, procalcitonin 0.09, chest CTA showed new complete collapse of left lung secondary to mainstem bronchus occlusion, patient was given a septic bolus as well as Zosyn and 40 mEq potassium orally. This case was discussed with Dr. Jensen in [facility] ER. She excepted patient in transfer. Medical Records I reviewed the patient's medical records. Lab Data I reviewed the patient's lab results. 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 Laboratory Results WBC 11.03 10^3/uL (3.29-11.43) 09/03/24 23:05 RBC 5.26 10^6/uL (3.85-5.65) 09/03/24 23:05 Hgb 15.50 g/dL (11.27-16.99) 09/03/24 23:05 Hct 46.5 % (36-47) 09/03/24 23:05 MCV 88.4 fl (85-98) 09/03/24 23:05 MCH 29.5 pg (27-33) 09/03/24 23:05 MCHC 33.3 g/dL (30-55) 09/03/24 23:05 RDW 13.8 % (12.1-15.1) 09/03/24 23:05 Plt Count 391 10^3/cmm (157-399) 09/03/24 23:05 MPV 9.8 fL (7.4-10.4) 09/03/24 23:05 Neut % (Auto) 60.4 % 09/03/24 23:05 Lymph % (Auto) 30.0 % 09/03/24 23:05 Lasalle % (Auto) 8.0 % 09/03/24 23:05 Eos % (Auto) 0.7 % 09/03/24 23:05 Baso % (Auto) 0.5 % 09/03/24 23:05 Neut # (Auto) 6.66 10^3/uL (1.8-7.7) 09/03/24 23:05 Lymph # (Auto) 3.3 10^3/uL (0.8-4.8) 09/03/24 23:05 [place]alle # (Auto) 0.9 10^3/uL (0.2-0.9) 09/03/24 23:05 Eos # (Auto) 0.1 10^3/uL (0.0-0.8) 09/03/24 23:05 Baso # (Auto) 0.1 10^3/uL (0.0-0.1) 09/03/24 23:05 Nucleated RBC % (auto) 0 % 09/03/24 23:05 Nucleated RBCs # 0.0 /100WBC 09/03/24 23:05 PT 13.90 SECONDS (12.1-14.9) 09/03/24 23:05 INR 1.00 (0.8-1.2) 09/03/24 23:05 Specimen Type Arterial 09/03/24 23:07 Sample Site Radial, right 09/03/24 23:07 ABG pH 7.59 (7.35-7.45) H* 09/03/24 23:07 ABG pCO2 20.5 mmHg (35-45) L 09/03/24 23:07 ABG pO2 57.2 mmHg (80.0-100.0) L 09/03/24 23:07 ABG HCO3 19.6 mmol/L (22-26) L 09/03/24 23:07 ABG O2 Saturation 93.9 09/03/24 23:07 ABG Base Excess 0.2 mmol/L (-2.0-2.0) 09/03/24 23:07 Julio Test Pos 09/03/24 23:07 A-a O2 Gradient 8.4 mmHg (5-10) 09/03/24 23:07 Hematocrit 46.0 % (37-47) 09/03/24 23:07 Hgb O2 Saturation 91.9 % (95-100) L 09/03/24 23:07 Carboxyhemoglobin 1.4 %THgb (0.4-20.1) 09/03/24 23:07 Methemoglobin 0.8 % (0.4-1.5) 09/03/24 23:07 Total Hemoglobin 15.0 g/dL (12-16) 09/03/24 23:07 Sodium 142.0 mmol/L (131-143) 09/03/24 23:07 Potassium 2.7 mmol/L (3.5-5.0) L 09/03/24 23:07 Glucose 139.0 mg/dL (70-115) H 09/03/24 23:07 Ionized Calcium 1.1 mmol/L (1.1-1.4) 09/03/24 23:07 O2 Delivery Device Nc 09/03/24 23:07 O2 Liters/Min 4.0 % 09/03/24 23:07 Associate Relations Specialist ID [email or web address] 09/03/24 23:07 Sodium 141 mmol/L (136-145) 09/03/24 23:05 Potassium 3.4 mmol/L (3.5-5.1) L 09/03/24 23:05 Chloride 101 mmol/L (98-107) 09/03/24 23:05 Carbon Dioxide 20 mmol/L (22-29) L 09/03/24 23:05 Anion Gap 23.4 (5-19) H 09/03/24 23:05 BUN 4 mg/dL (8-23) L 09/03/24 23:05 Creatinine 0.8 mg/dL (0.5-0.9) 09/03/24 23:05 GFR Calculation Not Reportable 09/03/24 23:05 Glucose 142 mg/dL (65-115) H 09/03/24 23:05 Calculated Osmolality 291 mOsm/kg (285-295) 09/03/24 23:05 Lactic Acid 4.3 mmol/L (0.5-2.2) H* 09/03/24 23:05 Lactic Acid (Sepsis) 1.6 mmol/L (0.5-2.2) 09/04/24 00:59 Calcium 10.1 mg/dL (8.5-10.5) 09/03/24 23:05 Total Bilirubin 0.8 mg/dL (0.15-1.2) 09/03/24 23:05 AST 12 U/L (0-32) 09/03/24 23:05 ALT 8 U/L (0-33) 09/03/24 23:05 Alkaline Phosphatase 153 U/L (35-105) H 09/03/24 23:05 Troponin T Baseline 13 ng/L (0-10) H 09/03/24 23:05 Troponin T 120 Minute 11.32 ng/L (0-10) H 09/04/24 00:59 Delta Troponin T -1.68 ABS# (0-10) L 09/04/24 00:59 NT-Pro-B Natriuret Pep 729 pg/mL (0-125) H 09/03/24 23:05 Total Protein 7.8 g/dL (6.6-8.7) 09/03/24 23:05 Albumin 4.3 g/dL (3.5-5.2) 09/03/24 23:05 Globulin 3.5 g/dL (1.3-4.6) 09/03/24 23:05 Procalcitonin 0.09 ng/mL (0-0.5) 09/03/24 23:05 All radiology interpretation(s) finalized by discharge Discharge Plan Discharge Patient Disposition: Xfer Short-Term Hosp Clinical Impression: Acute hypoxemic respiratory failure, Lung malignancy Condition: Stable Prescriptions: No Action nitroglycerin [Nitrostat] 0.4 mg tablet, sublingual 0.4 mg SUBLINGUAL Q5M PRN (Reason: chest pain) Qty: 30 1RF Rx Instructions: do not exceed 3 doses per episode aspirin 81 mg tablet,delayed release (DR/EC) 81 mg PO QPM metoprolol tartrate 25 mg tablet 25 mg PO BEDTIME lorazepam [Ativan] 1 mg tablet 1 mg PO BID PRN (Reason: heart pounding) Qty: 20 0RF Rx Instructions: for anxiety caused by steroids albuterol sulfate 90 mcg/actuation HFA aerosol inhaler 2 inh inhalation Q4H PRN (Reason: shortness of breath or wheezing) Qty: 6.7 0RF Rx Instructions: Please provide patient with a spacer Referrals: Tanya Aguiar FNP [Primary Care Provider] - Print Language: Uzbek Coding Level of Care Code 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
[2024-09-03 23:19] LABS: ABG PCO2 20.5 mmHg (35-45); Alveolar-Arterial Oxygen Gradi 8.4 mmHg (5-10); Base Excess ABG 0.2 mmol/L (-2.0-2.0); Blood Gas Allen Test Pos; Blood Gas Sample Site Radial, right; Blood Gas Sample Type Arterial; Carboxyhemoglobin 1.4 %THgb (0.4-20.1); HCO3 ABG 19.6 mmol/L (22-26); HGB O2 Sat 91.9 % (95-100); Ionized Calcium Level - ABG 1.1 mmol/L (1.1-1.4); Methemoglobin 0.8 % (0.4-1.5); Oxygen Device NC; Oxygen Saturation ABG 93.9; PO2 ABG 57.2 mmHg (80.0-100.0); Potassium Level - ABG 2.7 mmol/L (3.5-5.0)
[2024-09-03 23:20] LABS: ABG PH Result 7.59 (7.35-7.45)
[2024-09-03 23:24] LABS: Basophils # 0.1 10^3/uL (0.0-0.1); Basophils % 0.5 %; Eosinophils # 0.1 10^3/uL (0.0-0.8); Eosinophils % 0.7 %; Hematocrit 46.5 % (36-47); Lymphocytes # 3.3 10^3/uL (0.8-4.8); Mean Corpuscular HGB Conc 33.3 g/dL (30-55); Mean Corpuscular Hemoglobin 29.5 pg (27-33); Mean Corpuscular Volume 88.4 fl (85-98); Mean Platelet Volume 9.8 fL (7.4-10.4); Monocytes # 0.9 10^3/uL (0.2-0.9); Neutrophils # 6.66 10^3/uL (1.8-7.7); Neutrophils % 60.4 %; Nucleated Red Blood Cells % 0 %; Platelet Count 391 10^3/cmm (157-399); Red Blood Count 5.26 10^6/uL (3.85-5.65); Red Cell Distribution Width 13.8 % (12.1-15.1); White Blood Count 11.03 10^3/uL (3.29-11.43)
[2024-09-03] MEDS: morphine 4 mg/mL SDV 1 mL 2 MG IVP (23:24)
[2024-09-03 23:27] VITALS: BP 126/56; PULSE 93; RESP 35; O2SAT 88
[2024-09-03 23:37] LABS: Troponin(5th) Baseline 13 ng/L (0-10)
[2024-09-03 23:39] LABS: Lactic Sepsis W/Reflex 4.3 mmol/L (0.5-2.2)
[2024-09-03 23:47] LABS: Alanine Aminotransferase 8 U/L (0-33); Albumin Level 4.3 g/dL (3.5-5.2); Alkaline Phosphatase 153 U/L (35-105); Anion Gap 23.4 (5-19); Aspartate Amino Transferase 12 U/L (0-32); Blood Urea Nitrogen 4 mg/dL (8-23); Calcium 10.1 mg/dL (8.5-10.5); Carbon Dioxide 20 mmol/L (22-29); Chloride 101 mmol/L (98-107); Globulin 3.5 g/dL (1.3-4.6); Glucose 142 mg/dL (65-115); NT Pro B Type Natriuretic Pept 729 pg/mL (0-125); Osmolality Calculated 291 mOsm/kg (285-295); Potassium 3.4 mmol/L (3.5-5.1); Procalcitonin 0.09 ng/mL (0-0.5); Sodium 141 mmol/L (136-145); Total Bilirubin 0.8 mg/dL (0.15-1.2); Total Protein 7.8 g/dL (6.6-8.7)
[2024-09-04] VITALS (14 sets, daily range): BP systolic 138–183; BP diastolic 66–85; PULSE 62–108; RESP 22–24; O2SAT 92–97
[2024-09-04] MEDS: iohexol 350 mg/mL 500 mL Btl (per mL) IV (00:03)
[2024-09-04 01:02] LABS: Reflex Lactate Order REFLEX LACTIC ORDERD
[2024-09-04] MEDS: piperacillin-tazobactam 3.375 GM in sodium chloride 0.9% (plus) 50 ML IV (01:22)
[2024-09-04 01:31] LABS: Troponin 5 2HR 11.32 ng/L (0-10)
[2024-09-04 01:32] LABS: Lactic Acid level (Lactate) 1.6 mmol/L (0.5-2.2)
[2024-09-04 01:34] LABS: Troponin 5 2HR Delta -1.68 ABS# (0-10)
[2024-09-04] MEDS: potassium chloride ER 20 mEq Tablet 40 MEQ PO (02:02)
--- NOTE | 2024-09-04 05:05 | ECG_ITS ---
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
[2024-09-04 05:23] LABS: Troponin 5 6HR 10.67 ng/L (0-10)
[2024-09-04 05:27] LABS: Troponin 5 6HR Delta -2.33 ng/L (0-12)
[2024-09-04] MEDS: morphine 4 mg/mL SDV 1 mL 2 MG IVP (07:14)
== END 2024-09-04 10:59 | disposition short-term general hospital (02) ==
PROVIDERS: Emergency Provider Emergency Medicine; PCP Nurse Practitioner Family
DX: J96.01 Acute respiratory failure with hypoxia (principal); C34.02 Malignant neoplasm of left main bronchus; Z79.82 Long term (current) use of aspirin; Z72.0 Tobacco use
CPT/HCPCS: 36415; 36600; 71275; 80051; 80053; 82330; 82805; 83605; 83880; 84145; 84484; 85025; 85610; 87040; 93005; 94640; 96365; 96375; 96376; 99285; J2270; J2543; J7030

== ENCOUNTER 2024-11-09 13:26 | Emergency (ER) | payer MEDICARE, SELFPAY ==
[2024-11-09 13:27] VITALS: BP 113/67; PULSE 79; RESP 18; TEMP 36.4; O2SAT 96; BMI 21.1
--- NOTE | 2024-11-09 13:38 | XR_ITS ---
WS: [id number] XR chest 1V portable [id number] REASON FOR EXAM: sob FINDINGS: Moderate tortuosity and ectasia of the thoracic aorta. Normal heart size. Coronary artery stents. Compared to the previous examination of 06/25/2024, the large mass in the right upper lobe has decreased in size. A CT scan of 09/03/2024 demonstrated near complete collapse of the left lung and left pleural effusion. In the interim since the previous CT scan a stent has been placed in the left mainstem bronchus. There are focal areas of atelectasis and some overall volume loss in the left upper lobe at this time. XR/XR chest 1V portable [id number] IMPRESSION: Decrease in volume of previously demonstrated lung mass with some atelectasis a nd volume loss in the left upper Lobe. Interval placement of left mainstem bronchus stent since 09/03/2024.
--- NOTE | 2024-11-09 13:42 | ECG_ITS ---
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1950 Requested By: Penny Mcdaniels Order Number: [id number] Reading MD: POOL NINO Measurements Intervals [place] Rate: 80 P: 93 MO: 123 QRS: 56 QRSD: 90 T: 83 QT: 412 QTc: 478 Interpretive Statements SINUS RHYTHM LOW QRS VOLTAGE IN PRECORDIAL LEADS [QRS DEFLECTION < 1.0 mV IN CHEST LEADS] Compared to ECG 09/04/2024 07:39:18 Atrial fibrillation no longer present T-wave abnormality no longer present Possible ischemia no longer present Electronically Signed On 11-10-2024 16:19:49 CDT by POOL NINO [email or web address] [id number]
--- NOTE | 2024-11-09 13:42 | CTR_ITS ---
PROCEDURE INFORMATION: Exam: CTA Chest With Contrast Exam date and time: 11/09/2024 2:52 PM Age: 74 years old Clinical indication: Shortness of breath; Additional info: SOB TECHNIQUE: Imaging protocol: Computed tomographic angiography of the chest with contrast. Exam focused on the arteries. 3D rendering (Not supervised by radiologist): MIP and/or 3D reconstructed images were created by the technologist. Radiation optimization: All CT scans at this facility use at least one of these dose optimization techniques: automated exposure control; mA and/or kV adjustment per patient size (includes targeted exams where dose is matched to clinical indication); or iterative reconstruction. Contrast material: OMNI 350; Contrast volume: 54 ml; Contrast route: INTRAVENOUS (IV); COMPARISON: CT angio chest PE protcl [id number] 09/03/2024 11:51 PM RADIATION DOSE METRICS: Total DLP (mGy-cm): 243.82 FINDINGS: Pulmonary arteries: Normal. No pulmonary emboli. 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 Aorta: Unremarkable. No aortic aneurysm. No aortic dissection. Lungs: A stent is noted in the left mainstem bronchus and appears patent. There is a 4 cm diameter rounded, lobulated focus of soft tissue mass effect in the left upper lobe. The bronchus is occluded here and the mass effect infiltrates the left hilum. No infiltrate noted. Pleural spaces: Unremarkable. No pneumothorax. No pleural effusion. Heart: Unremarkable. No cardiomegaly. No pericardial effusion. Lymph nodes: Unremarkable. No enlarged lymph nodes. Bones/joints: Unremarkable. No acute fracture. Soft tissues: There is a 3.7 cm sebaceous cyst involving the right upper back. CT/CT angio chest PE protcl [id number] IMPRESSION: The left upper lobe lung mass has decreased significantly in size over the past 6 months and aeration of the left lung is much improved compared to 09/03/2024. I see no acute change on today's exam.
--- NOTE | 2024-11-09 13:42 | W.ED.DIZZY ---
HPI - Dizziness General: Chief Complaint: Dizziness Stated Complaint: dizziness, o2 dropping Time Seen by Provider: 11/09/24 13:31 Source: patient Mode of arrival: ambulatory Limitations: no limitations History of Present Illness: HPI Narrative: 74-year-old female has a history of lung cancer she just finished up her chemo and radiation she states she started having chest pain, shortness of breath today. She states it started roughly 4 to 5 hours ago been a sharp pain in the center of her chest she rates 6 out of 10 along with the dyspnea she denies any cough denies any fever denies any worse improving factors Associated symptoms: Denies chest pain, chills, headache(s), nausea or vomiting Related Data Home Medications ?Medication ?Instructions ?Recorded ?Confirmed aspirin 81 mg tablet,delayed 81 mg PO QPM 06/25/24 11/09/24 release metoprolol tartrate 25 mg tablet 25 mg PO BEDTIME 06/25/24 11/09/24 benzonatate 100 mg capsule 100 mg PO Q8H PRN Cough 09/04/24 11/09/24 ipratropium 0.5 mg-albuterol 3 mg 3 ml inhalation QID PRN Shortness 09/04/24 11/09/24 (2.5 mg base)/3 mL nebulization Of Breath soln gabapentin 100 mg capsule 100 mg PO QPM 11/09/24 11/09/24 guaifenesin 600 mg tablet, 600 mg PO BID 11/09/24 11/09/24 extended release 12 hr hydroxyzine HCl 50 mg tablet 50 mg PO BEDTIME 11/09/24 11/09/24 lorazepam 1 mg tablet 1 mg PO TID PRN Anxiety 11/09/24 11/09/24 moxifloxacin 400 mg tablet 400 mg PO DAILY 11/09/24 11/09/24 potassium chloride 20 mEq 20 meq PO DAILY 11/09/24 11/09/24 tablet,extended release timolol maleate 0.5 % eye drops 1 drp ophthalmic (eye) BID 11/09/24 11/09/24 Previous Rx's ?Medication ?Instructions ?Recorded albuterol sulfate 90 mcg/actuation 2 inh inhalation Q4H PRN shortness 06/25/24 aerosol inhaler of breath or wheezing #6.7 grams Allergies Allergy/AdvReac Type Severity Reaction Status Date / Time prednisone Allergy ADR-Chest Verified 09/03/24 22:56 Pain Review of Systems Const: Denies: fever(s), chills, body aches or change in appetite ENMT: Denies: throat pain or dental pain Card: Denies: chest pain Resp: Reports: dyspnea GI: Denies: abdominal pain, nausea, vomiting or diarrhea Musc: Denies: neck pain or back pain Skin/Breast: Denies: rash Neuro: Denies: headache(s) PFS ED PFSH: Medical History (Updated 11/09/24 @ 16:15 by Penny Mcdaniels MD) History of myocardial infarction (~2014) Surgical History H/O heart artery stent (2014) 5 placed Family History Other Cancer Diabetes Hypertension Social History Smoking and tobacco/nicotine status: current every day tobacco/nicotine user Alcohol intake: never Substance/Drug Use: never Lives independently: Yes Marital status: Physical Exam Const: COMMON NORMALS: patient oriented x3 HENMT: COMMON NORMALS: normocephalic and atraumatic HEAD & SCALP: normocephalic and atraumatic Eye: COMMON NORMALS: conjunctivae normal CONJUNCTIVA: Yes conjunctivae normal Neck/C-Spine: COMMON NORMALS: full ROM and supple Chest: COMMONS NORMALS: normal inspection of the chest and normal palpation of entire chest wall Resp: COMMON NORMALS: normal respiratory effort, No retractions, No use of accessory muscles and clear to auscultation bilaterally AUSCULTATION: clear to auscultation bilaterally Cardio: COMMON NORMALS: regular rate, regular rhythm and No murmurs present (Cardio) RATE: regular rate RHYTHM: regular rhythm Extremity: COMMON NORMALS: normal to inspection and full ROM Neuro: COMMON NORMALS: patient oriented x3, moves all extremities and no focal motor deficits Psych: COMMON NORMALS: mental status grossly normal, Normal thought process present and cooperative THOUGHT PROCESS: Normal thought process present Skin: COMMON NORMALS: no rashes or lesions noted and no wounds GENERAL SKIN EXAM: no rashes or lesions noted Course Vital Signs: Vital signs: Vital Signs Temperature 97.5 F L 11/09/24 13:27 Pulse Rate 59 L 11/09/24 15:32 Respiratory Rate 16 11/09/24 15:32 Blood Pressure 103/59 11/09/24 15:32 Pulse Oximetry 94 11/09/24 15:32 Oxygen Delivery Me thod Room Air 11/09/24 15:32 MDM - Dizziness Medical Decision Making Patient presents for chest pain atypical in nature has been resolved with morphine she has had no more pain here is felt much improved initial repeat troponins are negative her CTA of her chest showed no acute abnormality she has been able to ambulate without difficulty she stable for discharge follow-up with PCP return if worsening. Medical Records I reviewed the patient's medical records. Lab Data I reviewed the patient's lab results. 11/09/24 13:50 11/09/24 13:50 Radiology Impressions Chest X-Ray 11/09/24 13:38 IMPRESSION: Decrease in volume of previously demonstrated lung mass with some atelectasis and volume loss in the left upper Lobe. Interval placement of left mainstem bronchus stent since 09/03/2024. Chest CTA 11/09/24 13:42 IMPRESSION: The left upper lobe lung mass has decreased significantly in size over the past 6 months and aeration of the left lung is much improved compared to 09/03/2024. I see no acute change on today's exam. Laboratory Results WBC 3.48 10^3/uL (3.29-11.43) 11/09/24 13:50 RBC 3.42 10^6/uL (3.85-5.65) L 11/09/24 13:50 Hgb 10.40 g/dL (11.27-16.99) L 11/09/24 13:50 Hct 32.1 % (36-47) L 11/09/24 13:50 MCV 93.9 fl (85-98) 11/09/24 13:50 MCH 30.4 pg (27-33) 11/09/24 13:50 MCHC 32.4 g/dL (30-55) 11/09/24 13:50 RDW 19.3 % (12.1-15.1) H 11/09/24 13:50 Plt Count 240 10^3/cmm (157-399) 11/09/24 13:50 MPV 8.7 fL (7.4-10.4) 11/09/24 13:50 Neut % (Auto) 61.2 % 11/09/24 13:50 Lymph % (Auto) 20.1 % 11/09/24 13:50 [place] % (Auto) 12.9 % 11/09/24 13:50 Eos % (Auto) 0.6 % 11/09/24 13:50 Baso % (Auto) 0.9 % 11/09/24 13:50 Neut # (Auto) 2.13 10^3/uL (1.8-7.7) 11/09/24 13:50 Lymph # (Auto) 0.7 10^3/uL (0.8-4.8) L 11/09/24 13:50 [place] # (Auto) 0.5 10^3/uL (0.2-0.9) 11/09/24 13:50 Eos # (Auto) 0.0 10^3/uL (0.0-0.8) 11/09/24 13:50 Baso # (Auto) 0.0 10^3/uL (0.0-0.1) 11/09/24 13:50 Nucleated RBC % (auto) 0 % 11/09/24 13:50 Nucleated RBCs # 0.0 /100WBC 11/09/24 13:50 Sodium 143 mmol/L (136-145) 11/09/24 13:50 Potassium 3.3 mmol/L (3.5-5.1) L 11/09/24 13:50 Chloride 107 mmol/L (98-107) 11/09/24 13:50 Carbon Dioxide 23 mmol/L (22-29) 11/09/24 13:50 Anion Gap 16.3 (5-19) 11/09/24 13:50 BUN 9 mg/dL (8-23) 11/09/24 13:50 Creatinine 0.6 mg/dL (0.5-0.9) 11/09/24 13:50 GFR Calculation Not Reportable 11/09/24 13:50 Glucose 141 mg/dL (65-115) H 11/09/24 13:50 Calculated Osmolality 297 mOsm/kg (285-295) H 11/09/24 13:50 Calcium 9.1 mg/dL (8.5-10.5) 11/09/24 13:50 Total Bilirubin 0.3 mg/dL (0.15-1.2) 11/09/24 13:50 AST 18 U/L (0-32) 11/09/24 13:50 ALT 15 U/L (0-33) 11/09/24 13:50 Alkaline Phosphatase 153 U/L (35-105) H 11/09/24 13:50 Troponin T Baseline 7 ng/L (0-10) 11/09/24 13:50 Troponin T 120 Minute 7.69 ng/L (0-10) 11/09/24 15:43 Delta Troponin T 0.69 ABS# (0-10) 11/09/24 15:43 NT-Pro-B Natriuret Pep 309 pg/mL (0-125) H 11/09/24 13:50 Total Protein 6.8 g/dL (6.6-8.7) 11/09/24 13:50 Albumin 3.8 g/dL (3.5-5.2) 11/09/24 13:50 Globulin 3.0 g/dL (1.3-4.6) 11/09/24 13:50 No radiology studies performed this visit EKG Data EKG 1: I personally reviewed and interpreted this EKG as follows: EKG interpretation date: 11/09/24 EKG interpretation time: 13:36 Interpretation: nsr hr [address] elevation qrs 90 qtc 448 Discharge Plan Discharge Patient Disposition: Home Clinical Impression: Chest pain Condition: Stable Prescriptions: No Action ipratropium-albuterol 0.5 mg-3 mg(2.5 mg base)/3 mL solution for nebulization 3 ml INHALATION QID PRN (Reason: Shortness Of Breath) benzonatate 100 mg capsule 100 mg PO Q8H PRN (Reason: Cough) moxifloxacin 400 mg tablet 400 mg PO DAILY hydroxyzine HCl 50 mg tablet 50 mg PO BEDTIME gabapentin 100 mg capsule 100 mg PO QPM lorazepam 1 mg tablet 1 mg PO TID PRN (Reason: Anxiety) timolol maleate 0.5 % drops 1 drp ophthalmic (eye) BID guaifenesin 600 mg tablet extended release 12hr 600 mg PO BID potassium chloride 20 mEq tablet extended release 20 meq PO DAILY aspirin 81 mg tablet,delayed release (DR/EC) 81 mg PO QPM metoprolol tartrate 25 mg tablet 25 mg PO BEDTIME albuterol sulfate 90 mcg/actuation HFA aerosol inhaler 2 inh inhalation Q4H PRN (Reason: shortness of breath or wheezing) Qty: 6.7 0RF Discharge Orders: Discharge ED (Routine); Ordered 11/09/24 Ordered By: Penny Mcdaniels Referrals: Tanya Aguiar FNP [Primary Care Provider, Family Practice] - 4-7 days Discharge Diet: Advance as tolerated Discharge Activity: Resume usual activity Patient Instructions: Chest Pain (ED) Print Language: German 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
[2024-11-09 13:57] LABS: Basophils % 0.9 %; Eosinophils % 0.6 %; Hematocrit 32.1 % (36-47); Lymphocytes # 0.7 10^3/uL (0.8-4.8); Lymphocytes % 20.1 %; Mean Corpuscular HGB Conc 32.4 g/dL (30-55); Mean Corpuscular Hemoglobin 30.4 pg (27-33); Mean Corpuscular Volume 93.9 fl (85-98); Mean Platelet Volume 8.7 fL (7.4-10.4); Monocytes # 0.5 10^3/uL (0.2-0.9); Monocytes % 12.9 %; Neutrophils # 2.13 10^3/uL (1.8-7.7); Neutrophils % 61.2 %; Nucleated Red Blood Cells % 0 %; Platelet Count 240 10^3/cmm (157-399); Red Blood Count 3.42 10^6/uL (3.85-5.65); Red Cell Distribution Width 19.3 % (12.1-15.1); White Blood Count 3.48 10^3/uL (3.29-11.43)
[2024-11-09 14:15] LABS: Troponin(5th) Baseline 7 ng/L (0-10)
[2024-11-09 14:19] LABS: Alanine Aminotransferase 15 U/L (0-33); Albumin Level 3.8 g/dL (3.5-5.2); Alkaline Phosphatase 153 U/L (35-105); Anion Gap 16.3 (5-19); Aspartate Amino Transferase 18 U/L (0-32); Blood Urea Nitrogen 9 mg/dL (8-23); Calcium 9.1 mg/dL (8.5-10.5); Carbon Dioxide 23 mmol/L (22-29); Chloride 107 mmol/L (98-107); Creatinine Clr Calc Pharmacy 55.3282; Glucose 141 mg/dL (65-115); Osmolality Calculated 297 mOsm/kg (285-295); Potassium 3.3 mmol/L (3.5-5.1); Sodium 143 mmol/L (136-145); Total Bilirubin 0.3 mg/dL (0.15-1.2); Total Protein 6.8 g/dL (6.6-8.7)
[2024-11-09] MEDS: morphine 4 mg/mL SDV 1 mL IVP (14:25)
[2024-11-09] MEDS: ondansetron 2 mg/ML SDV 2 mL 4 MG IVP (14:26)
[2024-11-09 14:35] LABS: NT Pro B Type Natriuretic Pept 309 pg/mL (0-125)
[2024-11-09] MEDS: iohexol 350 mg/mL 500 mL Btl (per mL) IV (15:05)
[2024-11-09 15:32] VITALS: BP 103/59; PULSE 59; RESP 16; O2SAT 94
[2024-11-09 16:00] VITALS: BP 98/60; PULSE 58; RESP 14; O2SAT 91
[2024-11-09 16:12] LABS: Troponin 5 2HR 7.69 ng/L (0-10); Troponin 5 2HR Delta 0.69 ABS# (0-10)
[2024-11-09 16:20] VITALS: BP 97/67; PULSE 59; RESP 14; O2SAT 96
== END 2024-11-09 16:31 | disposition home or self-care (01) ==
PROVIDERS: Emergency Provider Emergency Medicine; PCP Nurse Practitioner Family
DX: R07.9 Chest pain, unspecified (principal); Z79.82 Long term (current) use of aspirin; Z72.0 Tobacco use; Z85.118 Personal history of other malignant neoplasm of bronchus and lung; Z92.21 Personal history of antineoplastic chemotherapy
CPT/HCPCS: 36415; 71045; 71275; 80053; 83880; 84484; 85025; 93005; 96374; 96375; 99285; J2270; J2405

== ENCOUNTER 2024-11-25 21:49 | Emergency (ER) | payer MEDICARE, SELFPAY ==
[2024-11-25 22:04] VITALS: BP 147/81; PULSE 78; RESP 19; TEMP 36.5; O2SAT 97; BMI 22.3
[2024-11-25 23:37] VITALS: BP 139/80; PULSE 76; RESP 16; O2SAT 95
[2024-11-26] VITALS: BP 129/77; PULSE 75; RESP 16; O2SAT 94
--- NOTE | 2024-11-26 | W.ED.ABDPA2 ---
HPI - Abdominal Pain General: Chief Complaint: Abdominal Pain Stated Complaint: Right Knee Pain\Lower Back Pain Time Seen by Provider: 11/25/24 23:16 History of Present Illness: Patient presents with worsening right-sided back and knee pain that began 2-3 days ago. Pain is described as sharp, shooting, and radiating, consistent with sciatica. Patient reports the pain has progressively worsened despite being on gabapentin 100mg. Previously, the gabapentin had been effective in managing symptoms, but current dose is no longer providing relief. Patient denies recent trauma or falls. Patient occasionally experiences left-sided symptoms and reports bilateral leg pain with burning and aching sensations. Uses heat therapy for temporary relief, but symptoms quickly return. No history of chronic back problems. Current medications include gabapentin 100mg, which patient has attempted taking up to 200mg without improvement. Patient has documented allergy to steroids, reporting tachycardia with previous administration. Prior treatments have included steroids (now contraindicated) and gabapentin. Unable to recall previous experience with naproxen. Related Data Home Medications ?Medication ?Instructions ?Recorded ?Confirmed aspirin 81 mg tablet,delayed 81 mg PO QPM 06/25/24 11/09/24 release metoprolol tartrate 25 mg tablet 25 mg PO BEDTIME 06/25/24 11/09/24 ipratropium 0.5 mg-albuterol 3 mg 3 ml inhalation QID PRN Shortness 09/04/24 11/09/24 (2.5 mg base)/3 mL nebulization Of Breath soln gabapentin 100 mg capsule 100 mg PO QPM 11/09/24 11/09/24 hydroxyzine HCl 50 mg tablet 50 mg PO BEDTIME 11/09/24 11/09/24 lorazepam 1 mg tablet 1 mg PO TID PRN Anxiety 11/09/24 11/09/24 potassium chloride 20 mEq 20 meq PO DAILY 11/09/24 11/09/24 tablet,extended release timolol maleate 0.5 % eye drops 1 drp ophthalmic (eye) BID 11/09/24 11/09/24 Previous Rx's ?Medication ?Instructions ?Recorded albuterol sulfate 90 mcg/actuation 2 inh inhalation Q4H PRN shortness 06/25/24 aerosol inhaler of breath or wheezing #6.7 grams cyclobenzaprine 10 mg tablet 10 mg PO Q12H #20 tabs 11/26/24 naproxen 500 mg tablet (Naprosyn) 500 mg PO BID #30 tabs 11/26/24 Allergies Allergy/AdvReac Type Severity Reaction Status Date / Time prednisone Allergy ADR-Chest Verified 09/03/24 22:56 Pain Review of Systems General: Reports: 10 or more systems reviewed and unremarkable except in HPI and below PFSH ED PFSH: Medical History (Updated 11/26/24 @ 00:31 by Moises Nicholas DO) History of myocardial infarction (~2014) Surgical History H/O heart artery stent (2014) 5 placed Family History Other Cancer Diabetes Hypertension Social History Smoking and tobacco/nicotine status: current every day tobacco/nicotine user Alcohol intake: never Substance/Drug Use: never Lives independently: Yes Marital status: Physical Exam Const: COMMON NORMALS: no acute distress, patient oriented x3 and alert Resp: COMMON NORMALS: normal respiratory effort and No use of accessory muscles Cardio: COMMON NORMALS: regular rate, regular rhythm, S1 normal heart sound present and S2 normal heart sound present RATE: regular rate RHYTHM: regular rhythm HEART SOUNDS: S1 normal heart sound present and S2 normal heart sound present Neuro: COMMON NORMALS: patient oriented x3, CN's II-XII intact bilaterally, moves all extremities and deep tendon reflexes 2+ bilaterally SENSORIUM/ORIENTATION: Yes alert Course Vital Signs: Vital signs: Vital Signs Temperature 97.7 F 11/25/24 22:04 Pulse Rate 75 11/26/24 00:00 Respiratory Rate 16 11/26/24 00:00 Blood Pressure 129/77 11/26/24 00:00 Pulse Oximetry 94 11/26/24 00:00 Oxygen Delivery Me thod Room Air 11/26/24 00:00 MDM - Abdominal Pain Medical Decision Making 1. Acute Sciatica Exacerbation: - Administer intramuscular high-dose naproxen for immediate relief - Prescribe oral naproxen for continued treatment - Add muscle relaxant to medication regimen 2. Chronic Pain Management: - Consider increasing gabapentin dosage to 200-300mg as tolerated - Referral back to primary care provider for ongoing management 3. Medication Allergies: - Documented steroid allergy with cardiac symptoms - avoid systemic steroids Differential Diagnosis Likely abdominal pain, pancreatitis and small bowel obstruction No radiology studies performed this visit ED provider radiology interpretation(s): None Discharge Plan Discharge Patient Disposition: Home Clinical Impression: Sciatica of right side Condition: Stable Prescriptions: New cyclobenzaprine 10 mg tablet 10 mg PO Q12H Qty: 20 0RF naproxen [Naprosyn] 500 mg tablet 500 mg PO BID Qty: 30 0RF Continued ipratropium-albuterol 0.5 mg-3 mg(2.5 mg base)/3 mL solution for nebulization 3 ml INHALATION QID PRN (Reason: Shortness Of Breath) hydroxyzine HCl 50 mg tablet 50 mg PO BEDTIME gabapentin 100 mg capsule 100 mg PO QPM lorazepam 1 mg tablet 1 mg PO TID PRN (Reason: Anxiety) timolol maleate 0.5 % drops 1 drp ophthalmic (eye) BID potassium chloride 20 mEq tablet extended release 20 meq PO DAILY aspirin 81 mg tablet,delayed release (DR/EC) 81 mg PO QPM metoprolol tartrate 25 mg tablet 25 mg PO BEDTIME albuterol sulfate 90 mcg/actuation HFA aerosol inhaler 2 inh inhalation Q4H PRN (Reason: shortness of breath or wheezing) Qty: 6.7 0RF Discontinued benzonatate 100 mg capsule 100 mg PO Q8H PRN (Reason: Cough) moxifloxacin 400 mg tablet 400 mg PO DAILY guaifenesin 600 mg tablet extended release 12hr 600 mg PO BID Discharge Orders: Discharge ED (Routine); Ordered 11/26/24 Ordered By: Moises Nicholas Referrals: Kristen Mcgowan DO [Primary Care Provider, [employer] ASSISTANT] Discharge Diet: Advance as tolerated Discharge Activity: Resume usual activity Patient Instructions: Opioid Safety, Pain Management Activity Restrictions/Additional Instructions: 1. Rest ice alternating with heat plus new prescriptions as directed. Consider lidocaine patch. Can increase gabapentin to 200 to 300 mg 2-3 times daily. 2. Return to the emergency department for intractable pain, problems with bowel or bladder or significant worsening numbness. 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
[2024-11-26] MEDS: ketorolac 30 mg/mL INJ IM (00:45)
[2024-11-26] MEDS: HYDROcodone-acetaminophen 5-325 mg Tablet 1 TAB PO (00:46)
[2024-11-26 01:16] VITALS: BP 158/85; PULSE 68; RESP 16; O2SAT 97
== END 2024-11-26 01:19 | disposition home or self-care (01) ==
PROVIDERS: Emergency Provider Family Medicine; PCP Family Medicine
DX: M54.41 Lumbago with sciatica, right side (principal)
CPT/HCPCS: 96372; 99284; J1885; J9999

== ENCOUNTER 2025-01-11 14:38 | Emergency (ER) | payer MEDICARE, SELFPAY ==
--- NOTE | 2025-01-11 14:39 | ECG_ITS ---
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 Measurements Intervals [place] Rate: 89 P: 91 WI: 134 QRS: -4 QRSD: 81 T: 75 QT: 396 QTc: 482 Interpretive Statements SINUS RHYTHM LOW QRS VOLTAGE IN PRECORDIAL LEADS [QRS DEFLECTION < 1.0 mV IN CHEST LEADS] POSSIBLE INFERIOR MYOCARDIAL INFARCTION , PROBABLY OLD [30 ms Q WAVE IN II/aVF] Compared to ECG 12/27/2024 17:50:06 Myocardial infarct finding now present Sinus bradycardia no longer present Electronically Signed On 01-11-2025 15:05:24 CDT by Chicho Duque M.D. [email or web address]
[2025-01-11 14:40] VITALS: BP 147/80; PULSE 88; RESP 16; TEMP 36.7; O2SAT 98; BMI 23.1
--- OUTSIDE RECORDS SUMMARY | 2025-01-11 14:45 | XMS_ITS ---
Author Organization Unknown TREATMENT PLAN [facility] Start Date Provider Encounter for Check-up [id number] [facility]
--- NOTE | 2025-01-11 14:48 | XRR_ITS ---
PROCEDURE INFORMATION: Exam: XR Chest Exam date and time: 01/11/2025 3:26 PM Age: 74 years old Clinical indication: Pain; Angina pectoris; Additional info: Chest pain TECHNIQUE: Imaging protocol: Radiologic exam of the chest. Views: 1 view. COMPARISON: CT angio chest PE protcl [id number] 12/28/2024 10:45 AM FINDINGS: Lungs: There is no consolidation. There is focal pulmonary parenchymal opacity in the left upper lung, corresponding to the finding on 12/28/2024. There is a left lower lobe bronchial stent. Pleural spaces: There is no pleural effusion or pneumothorax. Heart/Mediastinum: Cardiomediastinal contours are unremarkable. Bones/joints: Bones are unremarkable. XR/XR chest 1V portable [id number] IMPRESSION: 1. No acute findings. No change since 12/28/2024. 2. Stable chronic opacity in the left upper lung consistent with neoplasm and/or treatment changes as seen on 12/28/2024.
[2025-01-11 15:48] LABS: Hematocrit 39.1 % (36-47); Hemoglobin 13.30 g/dL (11.27-16.99); Mean Corpuscular HGB Conc 34.0 g/dL (30-55); Mean Corpuscular Hemoglobin 32.1 pg (27-33); Mean Corpuscular Volume 94.4 fl (85-98); Nucleated Red Blood Cells % 0 %; Platelet Count 246 10^3/cmm (157-399); Red Blood Count 4.14 10^6/uL (3.85-5.65); White Blood Count 5.91 10^3/uL (3.29-11.43)
--- NOTE | 2025-01-11 15:51 | W.ED.CHESTPA ---
HPI - Chest Pain General: Chief Complaint: Chest Pain Stated Complaint: cp/n/dizzy Time Seen by Provider: 01/11/25 15:51 History of Present Illness: 74-year-old female presents emergency room with complaints of feeling short of breath she is tachypneic she is not hypoxic. She complains of numbness and tingling in her face and hands some hand spasms and cramping. She is extremely anxious. Respiratory rate when initially seen the patient is approaching 30 breaths/min. She denies any chest or abdominal pain. Associated symptoms: Deny abdominal pain, dyspnea or fever(s) Related Data Home Medications ?Medication ?Instructions ?Recorded ?Confirmed aspirin 81 mg tablet,delayed 81 mg PO QAM 06/25/24 12/27/24 release metoprolol tartrate 25 mg tablet 25 mg PO QAM 06/25/24 12/27/24 gabapentin 100 mg capsule 100 mg PO QPM 11/09/24 12/27/24 hydroxyzine HCl 50 mg tablet 50 mg PO BEDTIME 11/09/24 12/27/24 lorazepam 1 mg tablet 1 mg PO TID PRN Anxiety 11/09/24 12/27/24 potassium chloride 20 mEq 20 meq PO DAILY 11/09/24 12/27/24 tablet,extended release timolol maleate 0.5 % eye drops 1 drp ophthalmic (eye) BID 11/09/24 12/27/24 benzonatate 100 mg capsule 100 mg PO Q8H PRN Cough 12/27/24 12/27/24 cyclobenzaprine 10 mg tablet 10 mg PO Q12H PRN Muscle Spasm 12/27/24 12/27/24 naproxen 500 mg tablet (Naprosyn) 500 mg PO BID 12/27/24 12/27/24 nitroglycerin 0.4 mg sublingual 0.4 mg sublingual Q5M PRN Chest 12/27/24 12/27/24 tablet Pain Previous Rx's ?Medication ?Instructions ?Recorded albuterol sulfate 90 mcg/actuation 2 inh inhalation Q4H PRN shortness 06/25/24 aerosol inhaler of breath or wheezing #6.7 grams atorvastatin 40 mg tablet 40 mg PO BEDTIME 30 days #30 tabs 12/28/24 lorazepam 1 mg tablet (Ativan) 1 mg PO Q8H PRN anxiety #10 tabs 01/11/25 Allergies Allergy/AdvReac Type Severity Reaction Status Date / Time prednisone Allergy ADR-Chest Verified 12/27/24 09:32 Pain Review of Systems Const: Denies: fever(s) or chills Card: Denies: chest pain Resp: Denies: dyspnea GI: Denies: abdominal pain : Denies: dysuria, urinary frequency or urinary urgency Musc: Denies: neck pain or back pain Skin/Breast: Denies: rash PFSH ED PFSH: Medical History (Updated 01/11/25 @ 16:59 by Joesph Arnett DO) 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 Coronary artery disease History of myocardial infarction (~2014) Surgical History (Updated 01/11/25 @ 16:05 by Joesph Arnett DO) History of cholecystectomy H/O heart artery stent (2014) 5 placed Family History Other Cancer Diabetes Hypertension Social History Smoking and tobacco/nicotine status: current every day tobacco/nicotine user Alcohol intake: never Substance/Drug Use: never Lives independently: Yes Marital status: Physical Exam Const: GENERAL APPEARANCE: cooperative ORIENTATION/CONSCIOUSNESS: Yes awake, Yes oriented to person, Yes oriented to place and Yes oriented to time HENMT: COMMON NORMALS: normocephalic, atraumatic and hearing grossly normal bilaterally HEAD & SCALP: normocephalic and atraumatic Resp: COMMON NORMALS: normal respiratory effort, No retractions, No use of accessory muscles and clear to auscultation bilaterally AUSCULTATION: clear to auscultation bilaterally Cardio: COMMON NORMALS: regular rate, regular rhythm and No murmurs present (Cardio) RATE: regular rate RHYTHM: regular rhythm GI: COMMON NORMALS: Soft to palpation and No hepatosplenomegaly present AUSCULTATION: Yes normoactive bowel sounds PALPATION: Yes Soft to palpation, No Tenderness to palpation present (GI), No Guarding due to palpation present (GI) and Yes No hepatosplenomegaly present Extremity: COMMON NORMALS: normal to inspection, capillary refill normal, no clubbing, cyanosis or edema, no calf tenderness and no pedal edema Neuro: SENSORIUM/ORIENTATION: Yes oriented to person, Yes oriented to place and Yes oriented to time Skin: COMMON NORMALS: no rashes or lesions noted GENERAL SKIN EXAM: no rashes or lesions noted Course Vital Signs: Vital signs: Vital Signs Temperature 98.0 F 01/11/25 14:40 Pulse Rate 80 01/11/25 17:30 Respiratory Rate 16 01/11/25 14:40 Blood Pressure 145/87 01/11/25 17:30 Pulse Oximetry 91 01/11/25 17:30 Oxygen Delivery Me thod Room Air 01/11/25 14:40 MDM - Chest Pain Medical Decision Making Patient improved after Ativan will discharge home with Ativan to use as needed encouraged her to follow-up with her primary care doctor soon as she is able. Reviewed findings with the patient and her daughter. Lab Data 01/11/25 15:35 01/11/25 15:35 Radiology Impressions Chest X-Ray 01/11/25 14:48 IMPRESSION: 1. No acute findings. No change since 12/28/2024. 2. Stable chronic opacity in the left upper lung consistent with neoplasm and/or treatment changes as seen on 12/28/2024. Laboratory Results WBC 5.91 10^3/uL (3.29-11.43) 01/11/25 15:35 RBC 4.14 10^6/uL (3.85-5.65) 01/11/25 15:35 Hgb 13.30 g/dL (11.27-16.99) 01/11/25 15:35 Hct 39.1 % (36-47) 01/11/25 15:35 MCV 94.4 fl (85-98) 01/11/25 15:35 MCH 32.1 pg (27-33) 01/11/25 15:35 MCHC 34.0 g/dL (30-55) 01/11/25 15:35 RDW 14.2 % (12.1-15.1) 01/11/25 15:35 Plt Count 246 10^3/cmm (157-399) 01/11/25 15:35 MPV 8.6 fL (7.4-10.4) 01/11/25 15:35 Neut % (Auto) 69.6 % 01/11/25 15:35 Lymph % (Auto) 21.3 % 01/11/25 15:35 [place] % (Auto) 6.6 % 01/11/25 15:35 Eos % (Auto) 1.5 % 01/11/25 15:35 Baso % (Auto) 0.5 % 01/11/25 15:35 Neut # (Auto) 4.11 10^3/uL (1.8-7.7) 01/11/25 15:35 Lymph # (Auto) 1.3 10^3/uL (0.8-4.8) 01/11/25 15:35 [place] # (Auto) 0.4 10^3/uL (0.2-0.9) 01/11/25 15:35 Eos # (Auto) 0.1 10^3/uL (0.0-0.8) 01/11/25 15:35 Baso # (Auto) 0.0 10^3/uL (0.0-0.1) 01/11/25 15:35 Nucleated RBC % (auto) 0 % 01/11/25 15:35 Nucleated RBCs # 0.0 /100WBC 01/11/25 15:35 Specimen Type Arterial 01/11/25 16:16 Sample Site Brachial, left 01/11/25 16:16 ABG pH 7.55 (7.35-7.45) H 01/11/25 16:16 ABG pCO2 23.6 mmHg (35-45) L 01/11/25 16:16 ABG pO2 67.3 mmHg (80.0-100.0) L 01/11/25 16:16 ABG PO2/FiO2 Ratio 320 01/11/25 16:16 ABG HCO3 20.7 mmol/L (22-26) L 01/11/25 16:16 ABG O2 Saturation 96.3 01/11/25 16:16 ABG Base Excess 0.0 mmol/L (-2.0-2.0) 01/11/25 16:16 Julio Test N/a 01/11/25 16:16 A-a O2 Gradient 6.6 mmHg (5-10) 01/11/25 16:16 Hematocrit 41.5 % (37-47) 01/11/25 16:16 Hgb O2 Saturation 94.4 % (95-100) L 01/11/25 16:16 Carboxyhemoglobin 1.3 %THgb (0.4-20.1) 01/11/25 16:16 Methemoglobin 0.7 % (0.4-1.5) 01/11/25 16:16 Total Hemoglobin 13.5 g/dL (12-16) 01/11/25 16:16 Sodium 146.0 mmol/L (131-143) H 01/11/25 16:16 Potassium 3.0 mmol/L (3.5-5.0) L 01/11/25 16:16 Glucose 106.0 mg/dL (70-115) 01/11/25 16:16 Ionized Calcium 1.2 mmol/L (1.1-1.4) 01/11/25 16:16 O2 Delivery Device Room air 01/11/25 16:16 FiO2 21.0 % 01/11/25 16:16 Distribution Driver ID [email or web address] 01/11/25 16:16 Sodium 142 mmol/L (136-145) 01/11/25 15:35 Potassium 3.0 mmol/L (3.5-5.1) L 01/11/25 15:35 Chloride 105 mmol/L (98-107) 01/11/25 15:35 Carbon Dioxide 20 mmol/L (22-29) L 01/11/25 15:35 Anion Gap 20.0 (5-19) H 01/11/25 15:35 BUN 8 mg/dL (8-23) 01/11/25 15:35 Creatinine 0.7 mg/dL (0.5-0.9) 01/11/25 15:35 GFR Calculation Not Reportable 01/11/25 15:35 Glucose 104 mg/dL (65-115) 01/11/25 15:35 Calculated Osmolality 293 mOsm/kg (285-295) 01/11/25 15:35 Calcium 10.1 mg/dL (8.5-10.5) 01/11/25 15:35 Total Bilirubin 0.4 mg/dL (0.15-1.2) 01/11/25 15:35 AST 20 U/L (0-32) 01/11/25 15:35 ALT 22 U/L (0-33) 01/11/25 15:35 Alkaline Phosphatase 164 U/L (35-105) H 01/11/25 15:35 Troponin T Baseline 8 ng/L (0-10) 01/11/25 15:35 Total Protein 7.8 g/dL (6.6-8.7) 01/11/25 15:35 Albumin 4.6 g/dL (3.5-5.2) 01/11/25 15:35 Globulin 3.2 g/dL (1.3-4.6) 01/11/25 15:35 All radiology interpretation(s) finalized by discharge EKG Data EKG 1: Interpretation: EKG 01/11/2025 1444 normal sinus rhythm. Rate of 89 VT interval 134 QTc 482. There is a fair amount of artifact in 1-3 and aVF. No acute ST changes there appears to be Q waves in 2 3 and aVF. 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 Condition: Stable Prescriptions: New lorazepam [Ativan] 1 mg tablet 1 mg PO Q8H PRN (Reason: anxiety) Qty: 10 0RF No Action hydroxyzine HCl 50 mg tablet 50 mg PO BEDTIME gabapentin 100 mg capsule 100 mg PO QPM lorazepam 1 mg tablet 1 mg PO TID PRN (Reason: Anxiety) timolol maleate 0.5 % drops 1 drp ophthalmic (eye) BID potassium chloride 20 mEq tablet extended release 20 meq PO DAILY aspirin 81 mg tablet,delayed release (DR/EC) 81 mg PO QAM metoprolol tartrate 25 mg tablet 25 mg PO QAM albuterol sulfate 90 mcg/actuation HFA aerosol inhaler 2 inh inhalation Q4H PRN (Reason: shortness of breath or wheezing) Qty: 6.7 0RF benzonatate 100 mg capsule 100 mg PO Q8H PRN (Reason: Cough) nitroglycerin 0.4 mg Tablet, Sublingual 0.4 mg SUBLINGUAL Q5M PRN (Reason: Chest Pain) Rx Instructions: do not exceed 3 doses per episode cyclobenzaprine 10 mg tablet 10 mg PO Q12H PRN (Reason: Muscle Spasm) naproxen [Naprosyn] 500 mg tablet 500 mg PO BID atorvastatin 40 mg Tablet 40 mg PO BEDTIME 30 Days Qty: 30 0RF Discharge Orders: Discharge ED (Routine); Ordered 01/11/25 Ordered By: Joesph Arnett Referrals: Juan M,Kristen Ilana, DO [Primary Care Provider, PRINCIPAL PROCESS ENGINEER] Discharge Diet: Usual diet Discharge Activity: Resume usual activity Patient Instructions: Opioid Safety, Pain Management, Patient Portal & Donte Instructions Activity Restrictions/Additional Instructions: Thank you for choosing [facility] for your healthcare needs today. It is very important that you follow up as instructed or that you return to the Emergency Department should you have concerns or if your condition changes or worsens in any way. You are seen in the emergency room with complaints of feeling short of breath. Your blood gas showed that you have been hyperventilating. When you hyperventilate increases your oxygen in your bloodstream and decreases the carbon dioxide which gives you the sensation of feeling like you need to breathe more. This continually exacerbates itself. We did give you Ativan in the emergency room and will discharge you home once Ativan to use 1 mg every 8 hours as needed. Recommend you follow-up with your doctor. Your chest x-ray and EKG were normal. 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
[2025-01-11 16:04] LABS: Alanine Aminotransferase 22 U/L (0-33); Albumin Level 4.6 g/dL (3.5-5.2); Alkaline Phosphatase 164 U/L (35-105); Anion Gap 20.0 (5-19); Aspartate Amino Transferase 20 U/L (0-32); Blood Urea Nitrogen 8 mg/dL (8-23); Calcium 10.1 mg/dL (8.5-10.5); Carbon Dioxide 20 mmol/L (22-29); Chloride 105 mmol/L (98-107); Creatinine Clr Calc Pharmacy 57.5130; Globulin 3.2 g/dL (1.3-4.6); Glucose 104 mg/dL (65-115); Osmolality Calculated 293 mOsm/kg (285-295); Potassium 3.0 mmol/L (3.5-5.1); Sodium 142 mmol/L (136-145); Total Protein 7.8 g/dL (6.6-8.7)
[2025-01-11 16:09] LABS: Troponin(5th) Baseline 8 ng/L (0-10)
[2025-01-11 16:27] LABS: ABG PCO2 23.6 mmHg (35-45); ABG PH Result 7.55 (7.35-7.45); Alveolar-Arterial Oxygen Gradi 6.6 mmHg (5-10); Arterial Blood Gas Hematocrit 41.5 % (37-47); Blood Gas Operator Identificat AMH; Blood Gas Sample Site Brachial, left; Blood Gas Sample Type Arterial; Carboxyhemoglobin 1.3 %THgb (0.4-20.1); Glucose Level-ABG 106.0 mg/dL (70-115); HCO3 ABG 20.7 mmol/L (22-26); Ionized Calcium Level - ABG 1.2 mmol/L (1.1-1.4); Methemoglobin 0.7 % (0.4-1.5); Oxygen Saturation ABG 96.3; PO2 ABG 67.3 mmHg (80.0-100.0); PO2 FiO2 Ratio Arterial Blood 320; Potassium Level - ABG 3.0 mmol/L (3.5-5.0); Sodium Level - ABG 146.0 mmol/L (131-143)
[2025-01-11] MEDS: LORazepam 1 MG/0.5 ML injection IVP (17:25)
[2025-01-11 17:30] VITALS: BP 145/87; PULSE 80; O2SAT 91
== END 2025-01-11 17:31 | disposition home or self-care (01) ==
PROVIDERS: Emergency Medicine; Emergency Provider Family Medicine; PCP Family Medicine
DX: D02.22 Carcinoma in situ of left bronchus and lung (principal); R06.4 Hyperventilation; I25.10 Atherosclerotic heart disease of native coronary artery without angina pectoris; Z79.82 Long term (current) use of aspirin; Z79.899 Other long term (current) drug therapy; Z95.5 Presence of coronary angioplasty implant and graft; F17.200 Nicotine dependence, unspecified, uncomplicated
CPT/HCPCS: 36415; 36600; 71045; 80051; 80053; 82330; 82805; 84484; 85025; 93005; 96374; 99285; J2060

== ENCOUNTER → 2025-06-25 09:43 | Outpatient (BNVA) | payer MEDICARE, SELFPAY | PROVIDERS: PCP Family Medicine; Visit Provider Nurse Practitioner Family | DX: L72.0 Epidermal cyst (principal); L57.8 Other skin changes due to chronic exposure to nonionizing radiation; L81.4 Other melanin hyperpigmentation | CPT/HCPCS: 99203 ==